=== PATIENT | female | born 1985 | race Caucasian/White ===

== ENCOUNTER 2019-05-30 15:33 | Emergency (ER) | payer MEDICAID, SELFPAY ==
[2019-05-30] VITALS (14 sets, daily range): BP systolic 109–128; BP diastolic 56–59; PULSE 64; RESP 15–22; TEMP 36.8; O2SAT 92–98; BMI 26.6
--- NOTE | 2019-05-30 15:48 | ED_ITS ---
Entered by Harpreet Deal, acting as scribe for HPI - Chest Pain General: Chief Complaint: Chest Pain Stated Complaint: CP/N/V Time Seen by Provider: 05/30/19 15:42 History of Present Illness: HPI narrative: 33 yo female presents with chest pain, nausea and vomiting. Pt states that she hasn't been able to eat or sleep. pt states that she has tightness in her chest and back. Pt states that the tightness is constant. Pt states that they don't know what this tightness is. pt states that she has had this for a few months. Pt states that she had a baby in February that . complaint: chest pain Onset (ago): month(s) (several) Timing of current episode: constant Prior episodes: Yes Onset: during rest and during exertion Pain radiation: back Severity: moderate Quality: tightness Exacerbating factors: exertion and movement Associated symptoms: Reports nausea and vomiting; Deny dyspnea or fever(s) Review of Systems Const: Denies: fever, chills, body aches or change in appetite Eyes: Denies: blurry vision or eye discomfort ENMT: Denies: throat pain or dental pain Card: Reports: chest pain Resp: Denies: shortness of breath GI: Reports: nausea and vomiting : Denies: painful urination Musc: Reports: back pain; Denies: neck pain Skin/Breast: Denies: rash Neuro: Denies: headache Psych: Denies: depression Jasbir/Lymph: Denies: easy bruising All/Imm: Denies: hives PFS ED PFSH: Medical History (Updated 05/30/19 @ 17:35 by Anjel aBca MD) Anxiety Bipolar 1 disorder Depression Gastroesophageal reflux disease Peptic ulcer disease Social History Smoking and tobacco status: current every day smoker Female Reproductive History: Date of last menstrual period: 05/30/19 Physical Exam Const: COMMON NORMALS: no apparent distress, oriented x3 and healthy appearing HENMT: COMMON NORMALS: normocephalic and head/scalp atraumatic HEAD & SCALP: normocephalic and atraumatic Eye: COMMON NORMALS: PERRL and EOMs intact bilaterally PUPIL: Yes PERRL Neck/C-Spine: COMMON NORMALS: full ROM and supple Chest: COMMONS NORMALS: inspection of chest normal and palpation of chest normal Resp: COMMON NORMALS: normal respiratory effort, no retractions, no use of accessory muscles and clear to auscultation bilaterally AUSCULTATION: clear to auscultation bilaterally Cardio: COMMON NORMALS: regular rate, regular rhythm and no murmurs RATE: regular rate RHYTHM: regular rhythm GI: COMMON NORMALS: normal to inspection, nondistended, normoactive bowel sounds, soft to palpation, non-tender and no masses PALPATION: Yes soft Extremity: COMMON NORMALS: normal to inspection and full ROM Neuro: COMMON NORMALS: oriented x3, moves all extremities and no focal motor deficits Psych: COMMON NORMALS: mental status grossly normal, thought process normal and cooperative THOUGHT PROCESS: normal thought process Skin: COMMON NORMALS: no rashes or lesions noted and no wounds GENERAL SKIN EXAM: no rashes or lesions noted Course Vital Signs: Vital signs: Vital Signs Temperature 98.3 F 05/30/19 15:38 Pulse Rate 64 05/30/19 15:38 Respiratory Rate 15 05/30/19 17:05 Blood Pressure 109/59 05/30/19 15:38 Pulse Oximetry 94 05/30/19 17:05 MDM - Chest Pain MDM Narrative: Medical decision making narrative: Patient presents here with chest pain that is atypical in nature. She has had this for months. Patient's x-ray and EKG here are normal. Patient's troponin is normal as well. She has no signs of cardiac cause or pulmonary embolism. We will get her follow-up with Dr. Maria and she is to return if worsening. She understands and agrees to the plan. Lab Data: Labs: Lab Results 05/30/19 05/30/19 05/30/19 Range/Units 14:39 16:24 16:24 WBC 10.2 H (4.0-10.0) 10^3/ uL RBC 5.10 (4.1-5.3) 10^6/u L Hgb 12.0 (11.5-15.3) g/dL Hct 38.9 (37.0-47.0) % MCV 76.3 L (81-99) fL MCH 23.5 L (28.0-34.0) pg MCHC 30.8 (30.0-36.0) g/dL RDW 15.0 (12.1-15.1) % Plt Count 387 (130-400) 10^3/c mm MPV 11.6 H (7.4-10.4) fL Neut % (Auto) 79.2 % Lymph % (Auto) 15.7 % Terry % (Auto) 3.1 % Eos % (Auto) 1.0 % Baso % (Auto) 0.8 % Neut # (Auto) 8.1 H (1.8-7.7) 10^3/u L Lymph # (Auto) 1.6 (0.8-4.8) 10^3/u L Terry # (Auto) 0.3 (0.2-0.9) 10^3/u L Eos # (Auto) 0.1 (0.0-0.8) 10^3/u L Baso # (Auto) 0.1 (0.0-0.1) 10^3/u L Nucleated RBC % (a uto) 0 % Nucleated RBCs # 0.0 /100WBC Sodium 139 (136-145) mmol/L Potassium 4.2 (3.5-5.1) mmol/L Chloride 108 H (98-107) mmol/L Carbon Dioxide 21 L (22-29) mmol/L Anion Gap 14.2 (5-19) BUN 10 (6-20) mg/dL Creatinine 0.6 (0.5-0.9) mg/dL GFR Calculation 113.8 (90-130) mL/min Glucose 124 H (65-115) mg/dL Calcium 9.2 (8.5-10.5) mg/dL Total Bilirubin 0.3 (0.15-1.2) mg/dL AST 12 (0-32) U/L ALT 17 (0-33) U/L Alkaline Phosphata se 76 (35-105) IU/L Troponin T Baselin e 6 (0-10) ng/mL Total Protein 7.2 (6.6-8.7) g/dL Albumin 4.1 (3.5-5.2) g/dL Globulin 3.1 (1.3-4.6) g/dL Lipase 38 (13-60) U/L Imaging Data^: CXR: Attestation: I personally reviewed and interpreted this imaging study as follows: My impression: no acute abnormality EKG Data^: EKG 1: Attestation: I personally reviewed and interpreted this EKG as follows: EKG interpretation date: 05/30/19 EKG interpretation time: 15:51 Interpretation: sinus mundo hr [address] or t wave abnormalities qrs 95 qtc 409 Discharge Plan Discharge Patient Disposition: Home, Self-Care Clinical Impression: Atypical chest pain Condition: Stable Discharge Orders: Discharge Order (Routine); Ordered 05/30/19 Ordered By: Anjel Baca Referrals: Abdi Maria MD [Physician] - Discharge Diet: Advance as tolerated Discharge Activity: Resume usual activity Patient Instructions: Chest Pain (ED) Coding Level of Care Code ED Spring Fitter for Chg 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 The documentation recorded by the Say odom Kialy, accurately reflects the service I personally performed and the decisions made by Phuong wilkinson Korby, MD May 30, 2019 15:33
--- NOTE | 2019-05-30 15:59 | ECG_ITS ---
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 [email or web address]
[2019-05-30 16:11] LABS: Basophils # 0.1 10^3/uL (0.0-0.1); Basophils % 0.8 %; Eosinophils # 0.1 10^3/uL (0.0-0.8); Hematocrit 38.9 % (37.0-47.0); Lymphocytes # 1.6 10^3/uL (0.8-4.8); Lymphocytes % 15.7 %; Mean Corpuscular HGB Conc 30.8 g/dL (30.0-36.0); Mean Corpuscular Hemoglobin 23.5 pg (28.0-34.0); Mean Corpuscular Volume 76.3 fL (81-99); Mean Platelet Volume 11.6 fL (7.4-10.4); Monocytes # 0.3 10^3/uL (0.2-0.9); Monocytes % 3.1 %; Neutrophils # 8.1 10^3/uL (1.8-7.7); Neutrophils % 79.2 %; Nucleated Red Blood Cells % 0 %; Platelet Count 387 10^3/cmm (130-400); White Blood Count 10.2 10^3/uL (4.0-10.0)
[2019-05-30] MEDS: sodium chloride 0.9% 1,000 ML 999 ML IV (16:46)
[2019-05-30] MEDS: HYDROmorphone 1 mg/mL INJ 1 mL IVP (16:49)
[2019-05-30] MEDS: ondansetron 2 mg/ML SDV 2 mL 4 MG IVP (16:49)
--- NOTE | 2019-05-30 16:51 | XR_ITS ---
WS: [id number] XR chest 1V portable [id number] REASON FOR EXAM: cp FINDINGS: Comparison November 18, 2017. The heart is not enlarged. The lung varela are adequately aerated. No pneumonia, pleural effusion, pulmonary edema, or pneumotho rax. The hilum and apices are normal. No osseous abnormalities. XR/XR chest 1V portable [id number] IMPRESSION: No active cardiopulmonary changes.
[2019-05-30 17:01] LABS: Alanine Aminotransferase 17 U/L (0-33); Albumin Level 4.1 g/dL (3.5-5.2); Alkaline Phosphatase 76 IU/L (35-105); Anion Gap 14.2 (5-19); Aspartate Amino Transferase 12 U/L (0-32); Blood Urea Nitrogen 10 mg/dL (6-20); Calcium 9.2 mg/dL (8.5-10.5); Carbon Dioxide 21 mmol/L (22-29); Chloride 108 mmol/L (98-107); Globulin 3.1 g/dL (1.3-4.6); Glomerular Filtration Rate 113.8 mL/min (90-130); Glucose 124 mg/dL (65-115); Lipase 38 U/L (13-60); Potassium 4.2 mmol/L (3.5-5.1); Sodium 139 mmol/L (136-145); Total Bilirubin 0.3 mg/dL (0.15-1.2); Total Protein 7.2 g/dL (6.6-8.7)
[2019-05-30 17:02] LABS: Troponin(5th) Baseline 6 ng/mL (0-10)
--- NOTE | 2019-05-31 15:02 | DCPLANNER ---
manager android had message to schedule a follow up appointment for patient with [facility]. manager android called [facility], spoke with Iona, gave clinic patients information. manager android was told that patients information would be reviewed, clinic will call field case manager and patient with appointment information.
--- NOTE | 2019-06-01 13:01 | DCPLANNER ---
Patient has a follow up appointment scheduled for Friday, June 14, 2019 at [facility], with Dr. Plascencia. Clinic will call mattress spring encaser with appointment information.
--- NOTE | 2019-06-15 10:59 | DCPLANNER ---
Appointment scheduled for 06.14.19 has been rescheduled for Wednesday, July 03, 2019 at 1:[address] Plascencia.
--- NOTE | 2019-07-16 14:54 | DCPLANNER ---
Appointment scheduled for 06.14.19 with [facility], was rescheduled.
== END 2019-05-30 18:05 | disposition home or self-care (01) ==
PROVIDERS: Emergency Provider Emergency Medicine
DX: R07.89 Other chest pain (principal); F17.200 Nicotine dependence, unspecified, uncomplicated
CPT/HCPCS: 36415; 71045; 80053; 83690; 84484; 85025; 93005; 96361; 96374; 96375; 99282; 99284; J1170; J2405; J7030

== ENCOUNTER 2019-06-02 11:38 | Emergency (ER) | payer MEDICAID, SELFPAY ==
[2019-06-02 11:38] VITALS: BP 142/116; PULSE 56; RESP 15; TEMP 36.9; O2SAT 99; BMI 27.1
--- NOTE | 2019-06-02 12:01 | ED_ITS ---
Entered by Michelle Del Cid, acting as scribe for Flores Walters MD HPI - General Adult General: Chief complaint: General Medical Stated complaint: GENERAL PAIN Time Seen by Provider: 06/02/19 12:00 Source: patient Mode of arrival: ambulatory Limitations: no limitations History of Present Illness: HPI narrative: 33 yo Female presents to ED with complaint of nausea, vomiting, and muscle pain all over. Pt states that she hasn't stopped any medications that would be causing withdrawal type symptoms. Pt states that she has been seen in [place] and at [facility]. Pt states that she had H. Pylori in her stomach several years ago and thought that was better. Pt states that she was seen by her PCP today and given a shot of compazine and toradol. Pt states that when she lost days and was delirious from pain when she had the H. pylori before. Pt requests nausea medication and Dilaudid for the pain. Pt has had a history of pancreatits. Pt states that she still has her gallbladder and appendix. complaint: Multiple complaints Onset (ago): day(s) Location: abdomen Severity scale (1-10): 10 Quality: constant Pain Consistency: constant Relieving factors: none Exacerbating factors: none Associated symptoms: Reports nausea and vomiting; Deny chest pain, dyspnea, headache(s) or rash Treatments prior to arrival: none Review of Systems General: Reports: 10 or more systems reviewed and unremarkable except in HPI and below Const: Reports: body aches; Denies: fever or chills Eyes: Denies: change in vision ENMT: Denies: throat pain Card: Denies: chest pain Resp: Denies: shortness of breath GI: Reports: abdominal pain, nausea and vomiting; Denies: change in bowel habits : Denies: difficulty urinating Musc: Denies: muscle weakness Skin/Breast: Denies: rash Neuro: Denies: headache Psych: Denies: hopelessness or suicidal ideation Endo: Denies: excessive urination Jasbir/Lymph: Denies: easy bruising or easy bleeding All/Imm: Denies: hives PFSH ED PFSH: Medical History Anxiety Bipolar 1 disorder Depression Gastroesophageal reflux disease Peptic ulcer disease Social History Smoking and tobacco status: current every day smoker Female Reproductive History: Date of last menstrual period: 05/30/19 Physical Exam Const: COMMON NORMALS: no apparent distress, average body habitus, oriented x3, no limitations, healthy appearing, alert and well nourished HENMT: COMMON NORMALS: normocephalic, external ears normal and external nose normal HEAD & SCALP: normocephalic NOSE: external nose normal EXTERNAL EAR: Yes external ears normal MOUTH: oral and palatal mucosa normal THROAT: posterior oropharynx normal Eye: COMMON NORMALS: PERRL, EOMs intact bilaterally, conjunctivae normal, no scleral icterus and normal visual varela by confrontation CONJUNCTIVA: Yes conjunctivae normal PUPIL: Yes PERRL Neck/C-Spine: COMMON NORMALS: full ROM, no lymphadenopathy, supple, no meningeal signs and no JVD CERVICAL SPINE: Yes cervical ROM normal Lymph: LYMPHATIC: no lymphadenopathy noted Chest: COMMONS NORMALS: inspection of chest normal Resp: COMMON NORMALS: normal respiratory effort, no retractions, no use of accessory muscles and clear to auscultation bilaterally AUSCULTATION: clear to auscultation bilaterally Cardio: COMMON NORMALS: no JVD, regular rate, regular rhythm, no gallops, no clicks, no murmurs and no rub RATE: regular rate RHYTHM: regular rhythm GI: COMMON NORMALS: normal to inspection, nondistended, normoactive bowel sounds, soft to palpation and non-tender AUSCULTATION: Yes normoactive bowel sounds PALPATION: Yes soft : COMMON NORMALS: Yes no CVA tenderness BLADDER/KIDNEY EXAM: Yes no CVA tenderness Back/Pelvis: COMMON NORMALS: no CVA tenderness Extremity: COMMON NORMALS: normal to inspection Neuro: COMMON NORMALS: oriented x3 SENSORIUM/ORIENTATION: Yes alert MENINGEAL SIGNS: Yes no meningeal signs SPEECH: speech normal Psych: COMMON NORMALS: mental status grossly normal, thought process normal, cooperative, affect normal, speech normal, activity/motor behavior normal, denies hallucinations, denies homicidal ideation and denies suicidal ideation SPEECH: Yes normal speech THOUGHT PROCESS: normal thought process Skin: COMMON NORMALS: no rashes or lesions noted GENERAL SKIN EXAM: no rashes or lesions noted Course Vital Signs: Vital signs: Vital Signs Temperature 98.4 F 06/02/19 11:38 Pulse Rate 56 L 06/02/19 11:38 Respiratory Rate 18 06/02/19 12:28 Blood Pressure 142/116 06/02/19 11:38 Pulse Oximetry 99 06/02/19 12:28 MDM - General Adult MDM Narrative: Medical decision making narrative: Patient told me that she feels exactly like she did years ago when she was diagnosed with H. pylori she had exactly the same symptoms pain all over nausea vomiting. Her test today showed that she is positive for H. pylori I updated her on this information she is resting comfortably in bed right now and does not appear to be in distress. Prescription is written for clarithromycin based therapy to eradicate H. pylori. She also has a follow-up appointment June 13 with a senior information security analyst from her previous ED visit, the social science professor informed me of this earlier. Lab Data: Labs: Lab Results 06/02/19 06/02/19 06/02/19 Range/Units 12:22 12:22 12:48 WBC 10.0 (4.0-10.0) 10^3/ uL RBC 4.94 (4.1-5.3) 10^6/u L Hgb 11.7 (11.5-15.3) g/dL Hct 38.1 (37.0-47.0) % MCV 77.1 L (81-99) fL MCH 23.7 L (28.0-34.0) pg MCHC 30.7 (30.0-36.0) g/dL RDW 15.1 (12.1-15.1) % Plt Count 356 (130-400) 10^3/c mm MPV 10.9 H (7.4-10.4) fL Neut % (Auto) 86.8 % Lymph % (Auto) 9.4 % Henderson % (Auto) 2.4 % Eos % (Auto) 0.6 % Baso % (Auto) 0.5 % Neut # (Auto) 8.7 H (1.8-7.7) 10^3/u L Lymph # (Auto) 0.9 (0.8-4.8) 10^3/u L Henderson # (Auto) 0.2 (0.2-0.9) 10^3/u L Eos # (Auto) 0.1 (0.0-0.8) 10^3/u L Baso # (Auto) 0.1 (0.0-0.1) 10^3/u L Nucleated RBC % (a uto) 0 % Nucleated RBCs # 0.0 /100WBC Sodium (136-145) mmol/L Potassium (3.5-5.1) mmol/L Chloride (98-107) mmol/L Carbon Dioxide (22-29) mmol/L Anion Gap (5-19) BUN (6-20) mg/dL Creatinine (0.5-0.9) mg/dL GFR Calculation (90-130) mL/min Glucose (65-115) mg/dL Calcium (8.5-10.5) mg/dL Total Bilirubin (0.15-1.2) mg/dL AST (0-32) U/L ALT (0-33) U/L Alkaline Phosphata se (35-105) IU/L Total Protein (6.6-8.7) g/dL Albumin (3.5-5.2) g/dL Globulin (1.3-4.6) g/dL Lipase (13-60) U/L Urine Color Dark yellow (Yellow) Urine Appearance Cloudy (CLEAR) Urine pH 6 (5-7) Ur Specific Gravit y 1.025 (1.005-1.030) Urine Protein Trace (Negative) Urine Glucose (UA) Norm (Normal) Urine Ketones 1+ H (Negative) Urine Blood Neg (Negative) Urine Nitrate Negative (Negative) Urine Bilirubin 1+ H (NEGATIVE) Urine Urobilinogen Norm (Negative) mg/dL Ur Leukocyte Gina ase 1+ H (Negative) Urine RBC 0-4 H (0-2) /hpf Urine WBC 5-10 H (0-5) /hpf Ur Squamous Epith Cells 25-40 H (0-5) Urine Bacteria 1+ H (NONE) Urine Mucus 2+ Urine Opiates Scre en Negative (Negative) ng/mL Ur Barbiturates Sc reen Negative (Negative) ng/mL Ur Phencyclidine S crn Negative (Negative) ng/mL Ur Amphetamines Sc reen Negative (Negative) ng/mL U Benzodiazepines Scrn Negative (Negative) ng/mL Urine Cocaine Scre en Negative (Negative) ng/mL U Marijuana (THC) Screen Positive H (Negative) ng/mL Ethyl Alcohol (0-10) mg/dL H. pylori IgG Anti body (Negative) 06/02/19 06/02/19 Range/Units 12:48 12:48 WBC (4.0-10.0) 10^3/ uL RBC (4.1-5.3) 10^6/u L Hgb (11.5-15.3) g/dL Hct (37.0-47.0) % MCV (81-99) fL MCH (28.0-34.0) pg MCHC (30.0-36.0) g/dL RDW (12.1-15.1) % Plt Count (130-400) 10^3/c mm MPV (7.4-10.4) fL Neut % (Auto) % Lymph % (Auto) % Henderson % (Auto) % Eos % (Auto) % Baso % (Auto) % Neut # (Auto) (1.8-7.7) 10^3/u L Lymph # (Auto) (0.8-4.8) 10^3/u L Henderson # (Auto) (0.2-0.9) 10^3/u L Eos # (Auto) (0.0-0.8) 10^3/u L Baso # (Auto) (0.0-0.1) 10^3/u L Nucleated RBC % (a uto) % Nucleated RBCs # /100WBC Sodium 142 (136-145) mmol/L Potassium 3.7 (3.5-5.1) mmol/L Chloride 106 (98-107) mmol/L Carbon Dioxide 22 (22-29) mmol/L Anion Gap 17.7 (5-19) BUN 15 (6-20) mg/dL Creatinine 0.7 (0.5-0.9) mg/dL GFR Calculation 95.2 (90-130) mL/min Glucose 158 H (65-115) mg/dL Calcium 9.7 (8.5-10.5) mg/dL Total Bilirubin 0.4 (0.15-1.2) mg/dL AST 14 (0-32) U/L ALT 14 (0-33) U/L Alkaline Phosphata se 85 (35-105) IU/L Total Protein 7.7 (6.6-8.7) g/dL Albumin 4.5 (3.5-5.2) g/dL Globulin 3.2 (1.3-4.6) g/dL Lipase 42 (13-60) U/L Urine Color (Yellow) Urine Appearance (CLEAR) Urine pH (5-7) Ur Specific Gravit y (1.005-1.030) Urine Protein (Negative) Urine Glucose (UA) (Normal) Urine Ketones (Negative) Urine Blood (Negative) Urine Nitrate (Negative) Urine Bilirubin (NEGATIVE) Urine Urobilinogen (Negative) mg/dL Ur Leukocyte Gina ase (Negative) Urine RBC (0-2) /hpf Urine WBC (0-5) /hpf Ur Squamous Epith Cells (0-5) Urine Bacteria (NONE) Urine Mucus Urine Opiates Scre en (Negative) ng/mL Ur Barbiturates Sc reen (Negative) ng/mL Ur Phencyclidine S crn (Negative) ng/mL Ur Amphetamines Sc reen (Negative) ng/mL U Benzodiazepines Scrn (Negative) ng/mL Urine Cocaine Scre en (Negative) ng/mL U Marijuana (THC) Screen (Negative) ng/mL Ethyl Alcohol < 10 (0-10) mg/dL H. pylori IgG Anti body Positive H (Negative) EKG Data^: EKG 1: EKG interpretation date: 06/02/19 EKG interpretation time: 12:38 Interpretation: Sinus bradycardia rate [address] changes with underlying artifact no acute ST elevation Discharge Plan Discharge Patient Disposition: Home, Self-Care Clinical Impression: H. pylori infection Condition: Stable Prescriptions: New omeprazole 20 mg capsule,delayed release(DR/EC) 20 mg PO BID 14 Days Qty: 28 RF: 0 metronidazole 500 mg tablet 500 mg PO TID 14 Days Qty: 42 RF: 0 Discharge Diet: Usual diet Discharge Activity: Resume usual activity Patient Instructions: Helicobacter Pylori (ED) Activity Restrictions/Additional Instructions: Follow-up with your primary care doctor as needed. You are always welcome to come back to the emergency department if you have any new or emergent symptoms that you think need to be evaluated. Be sure to take the entire 14-day course of the medications for the H. pylori. Coding Level of Care Code ED Analytical Statistician for Chg 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 The documentation recorded by the Maria Eugenia odom Carmen, accurately reflects the service I personally performed and the decisions made by , Flores Walters MD
[2019-06-02] MEDS: promethazine 25 mg/mL SDV 1 mL IM (12:27)
[2019-06-02 12:28] VITALS: RESP 18; O2SAT 99
[2019-06-02] MEDS: diazePAM 5 mg Tablet 10 MG PO (12:28)
[2019-06-02] MEDS: morphine 4 mg/mL SDV 1 mL IVP (12:28)
[2019-06-02 12:59] LABS: Basophils # 0.1 10^3/uL (0.0-0.1); Basophils % 0.5 %; Eosinophils # 0.1 10^3/uL (0.0-0.8); Eosinophils % 0.6 %; Hematocrit 38.1 % (37.0-47.0); Hemoglobin 11.7 g/dL (11.5-15.3); Lymphocytes # 0.9 10^3/uL (0.8-4.8); Lymphocytes % 9.4 %; Mean Corpuscular HGB Conc 30.7 g/dL (30.0-36.0); Mean Corpuscular Hemoglobin 23.7 pg (28.0-34.0); Mean Corpuscular Volume 77.1 fL (81-99); Mean Platelet Volume 10.9 fL (7.4-10.4); Monocytes # 0.2 10^3/uL (0.2-0.9); Monocytes % 2.4 %; Neutrophils # 8.7 10^3/uL (1.8-7.7); Neutrophils % 86.8 %; Nucleated Red Blood Cells % 0 %; Platelet Count 356 10^3/cmm (130-400); Red Blood Count 4.94 10^6/uL (4.1-5.3); Red Cell Distribution Width 15.1 % (12.1-15.1)
[2019-06-02 13:13] LABS: Alanine Aminotransferase 14 U/L (0-33); Albumin Level 4.5 g/dL (3.5-5.2); Alkaline Phosphatase 85 IU/L (35-105); Anion Gap 17.7 (5-19); Aspartate Amino Transferase 14 U/L (0-32); Blood Urea Nitrogen 15 mg/dL (6-20); Calcium 9.7 mg/dL (8.5-10.5); Carbon Dioxide 22 mmol/L (22-29); Chloride 106 mmol/L (98-107); Globulin 3.2 g/dL (1.3-4.6); Glomerular Filtration Rate 95.2 mL/min (90-130); Glucose 158 mg/dL (65-115); Lipase 42 U/L (13-60); Potassium 3.7 mmol/L (3.5-5.1); Sodium 142 mmol/L (136-145); Total Bilirubin 0.4 mg/dL (0.15-1.2); Total Protein 7.7 g/dL (6.6-8.7)
[2019-06-02 13:15] LABS: H. Pylori IgG Antibody Positive (Negative)
[2019-06-02 13:16] LABS: Alcohol Level < 10 mg/dL (0-10)
[2019-06-02 13:18] LABS: Amphetamines Screen Urine Negative (Negative); Barbiturates Screen Urine Negative (Negative); Benzodiazepines Screen Urine Negative (Negative); Cocaine Screen Urine Negative (Negative); Opiate Screen Urine Negative (Negative); PCP Screen Urine Negative (Negative); THC Screen Urine Positive (Negative)
[2019-06-02 13:21] LABS: Urine Appearance Cloudy (CLEAR); Urine Color Dark Yellow (Yellow)
[2019-06-02 13:22] LABS: Add Urine Microscopic? YES; Bilirubin Urine 1+ (NEGATIVE); Blood Urine Neg (Negative); Glucose Urine UA Norm (Normal); Ketones Urine 1+ (Negative); Leukocyte Esterase Urine 1+ (Negative); Nitrate Urine Negative (Negative); Protein Urine Trace (Negative); Specific Gravity, Urine 1.025 (1.005-1.030); Urobilinogen Urine Norm (Negative); pH Urine 6 (5-7)
[2019-06-02 13:23] LABS: Bacteria Urine 1+; Mucus Urine 2+; RBC Urine 0-4 /hpf (0-2); Squamous Epithelial Cell Urine 25-40 (0-5)
[2019-06-02 13:52] VITALS: RESP 18; O2SAT 99
[2019-06-02] MEDS: morphine 4 mg/mL SDV 1 mL 2 MG IVP (13:52)
[2019-06-02] MEDS: ondansetron 2 mg/ML SDV 2 mL 4 MG IVP (14:13)
[2019-06-02 14:34] VITALS: BP 141/82; PULSE 67; RESP 20; O2SAT 99
[2019-06-02 14:56] VITALS: RESP 18; O2SAT 98
[2019-06-02] MEDS: HYDROmorphone 1 mg/mL INJ 1 mL 0.4 MG SUBCUT (14:56)
--- NOTE | 2019-06-02 14:58 | PC.NURSE ---
PT ASKING TO SPEAK TO DR MAHMOOD, REQUESTING DILAUDID AND REFUSES TO LEAVE ROOM UNTIL DR MAHMOOD ORDERS DILAUDID. ATTEMPTED TO REASSURE PT WHILE EXPLAINING TO HER THAT THE DOCTOR WILL MAKE THE DECISION ABOUT PAIN MEDICATIONS. PT HAD REQUESTED DILAUDID 3 TIMES PRIOR TO THIS REQUEST. DR MAHMOOD NOTIFIED ET DISCHARGE WAS TO CONTINUE. PT BECAME ANGRY, RAISING HER VOICE STATING THEY GAVE ME DILAUDID LAST TIME! SECURITY CALLED TO ROOM TO SPEAK WITH PT. DISCHARGE INSTRUCTIONS GIVEN ET PT SIGNED HER DISCHARGE, BUT CONTINUED TO REFUSE TO LEAVE UNTIL DR MAHMOOD CAME TO ROOM TO SPEAK WITH HER. DR MAHMOOD DID COME TO ROOM ET SPOKE WITH PT. DILAUDID ORDERED FOR PT ET GIVEN. PT CALMLY LEFT ER AFTER RECEIVING INJECTION.
== END 2019-06-02 15:08 ==
LOC: ER 13:58
PROVIDERS: Emergency Provider Emergency Medicine
DX: A04.8 Other specified bacterial intestinal infections (principal)
CPT/HCPCS: 36415; 80053; 80307; 81001; 83690; 85025; 86677; 96372; 96374; 96375; 96376; 99283; J1170; J2270; J2405; J2550

== ENCOUNTER 2019-06-20 11:45 | Emergency (ER) | payer MEDICAID, SELFPAY ==
--- NOTE | 2019-06-20 11:51 | ED_ITS ---
Entered by Michelle Del Cid, acting as scribe for Misti Pennington DO HPI - Abdominal Pain General: Chief Complaint: Abdominal Pain Stated Complaint: ABD PAIN Time Seen by Provider: 06/20/19 11:48 Source: patient Mode of arrival: ambulatory Limitations: no limitations History of Present Illness: HPI narrative: 33 yo Female presents to ED with complaint of abdominal pain. Pt states that she has been dealing with this since 2013. Pt states that she has parasites and that she has been given multiple medications but they aren't working because she throws them up. Pt states that her symptoms have been going on again for 3 days. Pt states that the past 2 days she hasn't been throwing up but today she started throwing up again. Pt states that she has extreme pain. Pt states that her doctors keep telling her it is fibromyalgia. Pt states that she can't take pills because she throws them up and she can't drink water because she throws it up. Pt states that she smokes marijuana and cigarettes but she can't do that because it makes her throw up. Pt states that she also has back pain and spasms. Pt states that her symptoms are worse in the morning. Pt states that she has been told it is anxiety as well. Pt states that she can't deal with the pain. MD elicited complaint: abdominal pain Onset (ago): day(s) (3) Pain Consistency: constant Location: Diffuse Pain scale (0-10): 10 Quality: aching Radiation: none Migration to: no migration Exacerbating factors: eating and vomiting Relieving factors: nothing Associated Symptoms: Reports nausea and vomiting; Denies chills, constipation, diarrhea, fever(s) and hematochezia Related Data: Date of Last Menstrual Period: 05/30/19 Review of Systems General: Reports: 10 or more systems reviewed and unremarkable except in HPI and below Const: Denies: fever, chills or fatigue ENMT: Denies: throat pain Card: Denies: chest pain or swelling of feet/ankles Resp: Denies: shortness of breath or productive cough GI: Reports: abdominal pain, nausea and vomiting; Denies: diarrhea, constipation or blood in stool : Denies: difficulty urinating Musc: Reports: back pain; Denies: extremity swelling Skin/Breast: Denies: rash Neuro: Denies: headache, numbness in extremities or weakness in extremities PFSH ED PFSH: Social History Smoking and tobacco status: current every day smoker Female Reproductive History: Date of last menstrual period: 05/30/19 Physical Exam Const: COMMON NORMALS: no apparent distress and oriented x3 GENERAL APPEARANCE: cooperative; not in distress HENMT: COMMON NORMALS: normocephalic HEAD & SCALP: normal to inspection and normocephalic TYMPANIC MEMBRANE: TM normal on the right and TM abnormal TM laterality: left Details: fluid behind TM MOUTH: oral and palatal mucosa normal and lip normal THROAT: posterior oropharynx normal and tonsils abnormal (mildly enlarged bilaterally); tonsils not normal Neck/C-Spine: COMMON NORMALS: full ROM, no lymphadenopathy, supple and no meningeal signs GENERAL: Yes normal visual inspection and Yes trachea midline Chest: COMMONS NORMALS: inspection of chest normal Resp: COMMON NORMALS: normal respiratory effort and clear to auscultation bilaterally EFFORT & INSPECTION: Yes able to speak in complete sentences and No respiratory distress AUSCULTATION: clear to auscultation bilaterally, no rales, no rhonchi and wheezes (slight) Cardio: COMMON NORMALS: regular rate, regular rhythm, S1 normal heart sound, S2 normal heart sound and no murmurs RATE: regular rate RHYTHM: regular rhythm HEART SOUNDS: S1 normal and S2 normal PERIPHERAL PULSES: radial pulses present and dorsalis pedis pulses present GI: COMMON NORMALS: soft to palpation and non-tender; negative for normal to inspection, nondistended, normoactive bowel sounds INSPECTION: Yes normal to inspection AUSCULTATION: No normoactive bowel sounds and Yes hypoactive bowel sounds PALPATION: Yes soft, Yes tender (diffusely), No guarding and No rigid RECTAL EXAM: deferred : COMMON NORMALS: Yes no CVA tenderness BLADDER/KIDNEY EXAM: Yes no CVA tenderness Back/Pelvis: COMMON NORMALS: no CVA tenderness Extremity: COMMON NORMALS: normal to inspection, full ROM, normal capillary refill, no calf tenderness and no pedal edema Neuro: COMMON NORMALS: oriented x3, CN's II-XII intact bilaterally, moves all extremities and no focal motor deficits MENINGEAL SIGNS: Yes no meningeal signs Skin: COMMON NORMALS: no rashes or lesions noted GENERAL SKIN EXAM: no aminata hes or lesions noted Course Vital Signs: Vital signs: Vital Signs Temperature 97.9 F 06/20/19 11:53 Pulse Rate 72 06/20/19 11:53 Respiratory Rate 20 H 06/20/19 11:53 Blood Pressure 130/74 06/20/19 11:53 Pulse Oximetry 98 06/20/19 12:00 MDM - Abdominal Pain MDM Narrative: Medical decision making narrative: pt is starting to feel better, she is tolerating pos, she has a h/o H pylori, she is not dehydrated according to her labs, I will prescribe phenergan pr since she cant hold down pos, her problem is chronic and she has seen several specialists, she will need to f/u with her Dr for f/u giorgi, she may return if worse, Lab Data: Attestation: I reviewed the patient's lab results. Labs: Lab Results 06/20/19 06/20/19 06/20/19 Range/Units 12:15 12:15 13:45 WBC 10.2 H (4.0-10.0) 10^3/ uL RBC 5.16 (4.1-5.3) 10^6/u L Hgb 12.2 (11.5-15.3) g/dL Hct 40.5 (37.0-47.0) % MCV 78.5 L (81-99) fL MCH 23.6 L (28.0-34.0) pg MCHC 30.1 (30.0-36.0) g/dL RDW 15.9 H (12.1-15.1) % Plt Count 338 (130-400) 10^3/c mm MPV 11.0 H (7.4-10.4) fL Neut % (Auto) 79.8 % Lymph % (Auto) 12.9 % [place] % (Auto) 4.8 % Eos % (Auto) 1.6 % Baso % (Auto) 0.7 % Neut # (Auto) 8.1 H (1.8-7.7) 10^3/u L Lymph # (Auto) 1.3 (0.8-4.8) 10^3/u L [place] # (Auto) 0.5 (0.2-0.9) 10^3/u L Eos # (Auto) 0.2 (0.0-0.8) 10^3/u L Baso # (Auto) 0.1 (0.0-0.1) 10^3/u L Nucleated RBC % (a uto) 0 % Nucleated RBCs # 0.0 /100WBC Sodium 141 (136-145) mmol/L Potassium 3.8 (3.5-5.1) mmol/L Chloride 105 (98-107) mmol/L Carbon Dioxide 23 (22-29) mmol/L Anion Gap 16.8 (5-19) BUN 12 (6-20) mg/dL Creatinine 0.7 (0.5-0.9) mg/dL GFR Calculation 95.2 (90-130) mL/min Glucose 115 (65-115) mg/dL Calculated Osmolal ity 289 (285-295) mOsm/k g Calcium 9.9 (8.5-10.5) mg/dL Total Bilirubin 0.5 (0.15-1.2) mg/dL AST 15 (0-32) U/L ALT 15 (0-33) U/L Alkaline Phosphata se 85 (35-105) IU/L Total Protein 7.5 (6.6-8.7) g/dL Albumin 4.4 (3.5-5.2) g/dL Globulin 3.1 (1.3-4.6) g/dL Lipase 24 (13-60) U/L HCG, Qual Negative (Negative) Discharge Plan Discharge Patient Disposition: Home, Self-Care Clinical Impression: Vomiting Condition: Stable Prescriptions: New promethazine 25 mg suppository 25 mg NV Q4H PRN (Reason: nausea and vomiting) Qty: 12 RF: 0 No Action tizanidine 4 mg tablet 4 mg PO TID PRN (Reason: Muscle Pain) RF: 0 metronidazole 500 mg tablet 500 mg PO BID RF: 0 ondansetron 8 mg tablet,disintegrating 8 mg PO Q6H PRN (Reason: Nausea) RF: 0 lorazepam 0.5 mg tablet 0.5 mg PO PRN PRN (Reason: Anxiety) RF: 0 omeprazole 20 mg capsule,delayed release(DR/EC) 20 mg PO BID RF: 0 Discharge Orders: Discharge Order (Routine); Ordered 06/20/19 Ordered By: Misti Pennington Discharge Diet: Advance as tolerated Discharge Activity: Resume usual activity Patient Instructions: Acute Nausea and Vomiting (ED) Activity Restrictions/Additional Instructions: f/u with pcp /specialist giorgi, return if anything worse, drink plenty of fluids Coding Level of Care Code 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
[2019-06-20 11:53] VITALS: BP 130/74; PULSE 72; RESP 20; TEMP 36.6; O2SAT 98; BMI 26.3
[2019-06-20 12:00] VITALS: O2SAT 98
[2019-06-20 12:24] LABS: Basophils # 0.1 10^3/uL (0.0-0.1); Basophils % 0.7 %; Eosinophils # 0.2 10^3/uL (0.0-0.8); Eosinophils % 1.6 %; Hematocrit 40.5 % (37.0-47.0); Hemoglobin 12.2 g/dL (11.5-15.3); Lymphocytes # 1.3 10^3/uL (0.8-4.8); Lymphocytes % 12.9 %; Mean Corpuscular HGB Conc 30.1 g/dL (30.0-36.0); Mean Corpuscular Hemoglobin 23.6 pg (28.0-34.0); Mean Corpuscular Volume 78.5 fL (81-99); Monocytes # 0.5 10^3/uL (0.2-0.9); Monocytes % 4.8 %; Neutrophils # 8.1 10^3/uL (1.8-7.7); Neutrophils % 79.8 %; Nucleated Red Blood Cells % 0 %; Platelet Count 338 10^3/cmm (130-400); Red Blood Count 5.16 10^6/uL (4.1-5.3); Red Cell Distribution Width 15.9 % (12.1-15.1); White Blood Count 10.2 10^3/uL (4.0-10.0)
[2019-06-20] MEDS: ondansetron 2 mg/ML SDV 2 mL 4 MG IVP ×2 (12:24→14:49)
[2019-06-20] MEDS: sodium chloride 0.9% 1,000 ML 999 ML IV (12:25)
[2019-06-20] MEDS: famotidine 20 mg/2 mL INJ 40 MG IVP (12:25)
[2019-06-20] MEDS: morphine 4 mg/mL SDV 1 mL IVP ×2 (12:25→13:39)
[2019-06-20 12:40] LABS: Alanine Aminotransferase 15 U/L (0-33); Albumin Level 4.4 g/dL (3.5-5.2); Alkaline Phosphatase 85 IU/L (35-105); Anion Gap 16.8 (5-19); Aspartate Amino Transferase 15 U/L (0-32); Blood Urea Nitrogen 12 mg/dL (6-20); Calcium 9.9 mg/dL (8.5-10.5); Carbon Dioxide 23 mmol/L (22-29); Chloride 105 mmol/L (98-107); Globulin 3.1 g/dL (1.3-4.6); Glomerular Filtration Rate 95.2 mL/min (90-130); Glucose 115 mg/dL (65-115); Lipase 24 U/L (13-60); Osmolality Calculated 289 mOsm/kg (285-295); Potassium 3.8 mmol/L (3.5-5.1); Sodium 141 mmol/L (136-145); Total Bilirubin 0.5 mg/dL (0.15-1.2); Total Protein 7.5 g/dL (6.6-8.7)
[2019-06-20 13:54] LABS: HCG Qualitative Urine. Negative (Negative)
[2019-06-20 14:53] VITALS: BP 104/65; PULSE 78; RESP 16; O2SAT 98
== END 2019-06-20 14:54 | disposition home or self-care (01) ==
PROVIDERS: Emergency Provider Emergency Medicine
DX: R11.10 Vomiting, unspecified (principal); F17.200 Nicotine dependence, unspecified, uncomplicated
CPT/HCPCS: 12345; 36415; 80053; 81025; 83690; 85025; 96361; 96374; 96375; 96376; 99282; 99283; J2270; J2405; J3490; J7030

== ENCOUNTER 2019-07-03 11:02 | Emergency (ER) | payer MEDICAID, SELFPAY ==
[2019-07-03 11:03] VITALS: BP 133/76; PULSE 53; RESP 17; TEMP 36.5; O2SAT 99; BMI 25.8
--- NOTE | 2019-07-03 11:05 | W.ED.ABDPA2 ---
HPI - Abdominal Pain General: Chief Complaint: Abdominal Pain Stated Complaint: ABD PAIN Time Seen by Provider: 07/03/19 11:05 Source: patient Mode of arrival: ambulatory Limitations: no limitations History of Present Illness: HPI narrative: Patient presents with abdominal pain. Patient reports chronic history of abdominal pain and is supposed to be started on Lyrica soon. Patient has been diagnosed with fibromyalgia which is the cause for her abdominal pain. Patient appears well. Patient appears in moderate pain. Patient reportedly receiving something for pain and nausea in route to the ER. Review of medical history and chart she has been here 3 times in the last 3 months for the same complaint. Patient states she is supposed to be placed on Lyrica but is awaiting insurance approval. Related Data: Date of Last Menstrual Period: 05/30/19 Review of Systems General: Reports: 10 or more systems reviewed and unremarkable except in HPI and below GI: Reports: abdominal pain [facility] ED PFSH: Social History Smoking and tobacco status: current every day smoker Female Reproductive History: Date of last menstrual period: 05/30/19 Physical Exam Const: COMMON NORMALS: no apparent distress and oriented x3 GENERAL APPEARANCE: cooperative HENMT: COMMON NORMALS: normocephalic, external ears normal, EAC's normal, TM's normal bilaterally and external nose normal HEAD & SCALP: normal to inspection and normocephalic FACE & SINUS: normal facial exam NOSE: external nose normal GENERAL EAR: hearing not grossly impaired EXTERNAL EAR: Yes external ears normal EXTERNAL AUDITORY CANAL: EAC's normal TYMPANIC MEMBRANE: TM's normal bilaterally MOUTH: oral and palatal mucosa normal THROAT: posterior oropharynx normal Eye: COMMON NORMALS: PERRL and EOMs intact bilaterally PUPIL: Yes PERRL Neck/C-Spine: COMMON NORMALS: full ROM and no lymphadenopathy Lymph: LYMPHATIC: no lymphedema noted Chest: COMMONS NORMALS: inspection of chest normal and palpation of chest normal Resp: COMMON NORMALS: normal respiratory effort and clear to auscultation bilaterally AUSCULTATION: clear to auscultation bilaterally Cardio: COMMON NORMALS: regular rate and regular rhythm RATE: regular rate RHYTHM: regular rhythm GI: PALPATION: Yes tender (diffuse tenderness) : COMMON NORMALS: Yes no CVA tenderness BLADDER/KIDNEY EXAM: Yes no CVA tenderness Back/Pelvis: COMMON NORMALS: no CVA tenderness and thoracic and lumbar spine normal to inspection Extremity: COMMON NORMALS: normal to inspection GENERAL: No edema Neuro: COMMON NORMALS: oriented x3, moves all extremities and no focal motor deficits Psych: COMMON NORMALS: mental status grossly normal and cooperative Skin: COMMON NORMALS: no rashes or lesions noted GENERAL SKIN EXAM: no rashes or lesions noted Course ED course: 1300, patient resting quietly, states improvement in abd pain, but c/o her back, neck and shoulders, and is requesting further medication. Patient appears well. Vital Signs: Vital signs: Vital Signs Temperature 97.7 F 07/03/19 11:03 Pulse Rate 53 L 07/03/19 11:03 Respiratory Rate 17 07/03/19 11:03 Blood Pressure 133/76 07/03/19 11:03 Pulse Oximetry 98 07/03/19 11:48 MDM - Abdominal Pain MDM Narrative: Medical decision making narrative: Patient comes in today for complaints of vomiting and general pain. Patient stated at first that she was having abdominal pain for nausea and vomiting and that she had a history of ulcers. Exam noted above abdominal tenderness and generalized muscle tenderness of the neck and back. Respirations were even lungs were clear. Vital signs were normal. Differential diagnosis includes peptic ulcer disease, perforation of ulcer, pancreatitis, gastroenteritis, gastritis, exacerbation of chronic pain/fibromyalgia. Laboratory values noted a white count of 14,000, blood glucose of 168, sodium of 143, potassium 3.9, creatinine of 0.6. Patient had improvement of nausea and vomiting after dose of the Haldol 5 mg, 1 mg of Ativan, and 25 mg of Benadryl. Patient continued complaint of pain in her neck and shoulders after control of her vomiting and abdominal discomfort. Patient states that was from her fibromyalgia that started her nausea and vomiting. Review of the record patient had 3 previous visits in the last 30 days for similar complaints. CT scan was performed to rule out any significant abnormalities or illness. CT showed no perforation and no signs of inflammation or infection. CT was stable and otherwise normal. Reviewed exam with patient patient was requesting medication to help with her fibromyalgia pain, patient was given 100 mg of tramadol p.o. and written a prescription for 10 tablets. Patient was recommended to follow-up with primary care for further treatment. Lab Data: Labs: Lab Results 07/03/19 07/03/1920 Range/Units 12:04 12:04 12:04 WBC 14.5 H (4.0-10.0) 10^3/ uL RBC 5.11 (4.1-5.3) 10^6/u L Hgb 11.8 (11.5-15.3) g/dL Hct 40.1 (37.0-47.0) % MCV 78.5 L (81-99) fL MCH 23.1 L (28.0-34.0) pg MCHC 29.4 L (30.0-36.0) g/dL RDW 16.4 H (12.1-15.1) % Plt Count 269 (130-400) 10^3/c mm MPV 11.0 H (7.4-10.4) fL Neut % (Auto) 88.3 % Lymph % (Auto) 7.0 % [place] % (Auto) 3.6 % Eos % (Auto) 0.3 % Baso % (Auto) 0.3 % Neut # (Auto) 12.8 H (1.8-7.7) 10^3/u L Lymph # (Auto) 1.0 (0.8-4.8) 10^3/u L [place] # (Auto) 0.5 (0.2-0.9) 10^3/u L Eos # (Auto) 0.0 (0.0-0.8) 10^3/u L Baso # (Auto) 0.1 (0.0-0.1) 10^3/u L Nucleated RBC % (a uto) 0 % Nucleated RBCs # 0.0 /100WBC Sodium 143 (136-145) mmol/L Potassium 3.9 (3.5-5.1) mmol/L Chloride 110 H (98-107) mmol/L Carbon Dioxide 20 L (22-29) mmol/L Anion Gap 16.9 (5-19) BUN 15 (6-20) mg/dL Creatinine 0.6 (0.5-0.9) mg/dL GFR Calculation 113.8 (90-130) mL/min Glucose 168 H (65-115) mg/dL Calculated Osmolal ity 296 H (285-295) mOsm/k g Calcium 9.3 (8.5-10.5) mg/dL Total Bilirubin 0.3 (0.15-1.2) mg/dL AST 16 (0-32) U/L ALT 17 (0-33) U/L Alkaline Phosphata se 88 (35-105) IU/L Total Protein 7.7 (6.6-8.7) g/dL Albumin 4.5 (3.5-5.2) g/dL Globulin 3.2 (1.3-4.6) g/dL Lipase 23 (13-60) U/L HCG, Qual Negative (Negative) Discharge Plan Discharge Patient Disposition: Home, Self-Care Clinical Impression: Fibromyalgia, Cyclic vomiting syndrome Condition: Stable Prescriptions: New tramadol 50 mg tablet 50 mg PO Q8H PRN (Reason: pain) Qty: 7 RF: 0 No Action tizanidine 4 mg tablet 4 mg PO TID PRN (Reason: Muscle Pain) RF: 0 metronidazole 500 mg tablet 500 mg PO BID RF: 0 ondansetron 8 mg tablet,disintegrating 8 mg PO Q6H PRN (Reason: Nausea) RF: 0 lorazepam 0.5 mg tablet 0.5 mg PO PRN PRN (Reason: Anxiety) RF: 0 omeprazole 20 mg capsule,delayed release(DR/EC) 20 mg PO BID RF: 0 promethazine 25 mg suppository 25 mg [place] Q4H PRN (Reason: nausea and vomiting) Qty: 12 RF: 0 Discharge Orders: Discharge Order (Routine); Ordered 07/03/19 Ordered By: Bradley Haywood Discharge Diet: Advance as tolerated Discharge Activity: Increase activity as tolerated Patient Instructions: Abdominal Pain (ED) Activity Restrictions/Additional Instructions: Drink plenty of fluids Activity as tolerated Follow-up with primary care Return to ER for fever, blood in vomit or stool Coding Level of Care Code ED 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
[2019-07-03] MEDS: LORazepam 2 mg/mL INJ 1 mL 1 MG IVP (11:41)
[2019-07-03] MEDS: sodium chloride 0.9% 500 ML 999 ML IV (11:41)
[2019-07-03] MEDS: haloperidol inj 5 mg/mL INJ 1 mL IVP (11:42)
[2019-07-03] MEDS: diphenhydrAMINE 50 mg/mL SDV 1mL 25 MG IVP (11:42)
[2019-07-03 11:48] VITALS: O2SAT 98
[2019-07-03 12:09] LABS: Basophils # 0.1 10^3/uL (0.0-0.1); Basophils % 0.3 %; Eosinophils % 0.3 %; Hematocrit 40.1 % (37.0-47.0); Hemoglobin 11.8 g/dL (11.5-15.3); Mean Corpuscular HGB Conc 29.4 g/dL (30.0-36.0); Mean Corpuscular Hemoglobin 23.1 pg (28.0-34.0); Mean Corpuscular Volume 78.5 fL (81-99); Monocytes # 0.5 10^3/uL (0.2-0.9); Monocytes % 3.6 %; Neutrophils # 12.8 10^3/uL (1.8-7.7); Neutrophils % 88.3 %; Nucleated Red Blood Cells % 0 %; Platelet Count 269 10^3/cmm (130-400); Red Blood Count 5.11 10^6/uL (4.1-5.3); Red Cell Distribution Width 16.4 % (12.1-15.1); White Blood Count 14.5 10^3/uL (4.0-10.0)
[2019-07-03 12:26] LABS: Alanine Aminotransferase 17 U/L (0-33); Albumin Level 4.5 g/dL (3.5-5.2); Alkaline Phosphatase 88 IU/L (35-105); Anion Gap 16.9 (5-19); Aspartate Amino Transferase 16 U/L (0-32); Blood Urea Nitrogen 15 mg/dL (6-20); Calcium 9.3 mg/dL (8.5-10.5); Carbon Dioxide 20 mmol/L (22-29); Chloride 110 mmol/L (98-107); Globulin 3.2 g/dL (1.3-4.6); Glomerular Filtration Rate 113.8 mL/min (90-130); Glucose 168 mg/dL (65-115); Osmolality Calculated 296 mOsm/kg (285-295); Potassium 3.9 mmol/L (3.5-5.1); Sodium 143 mmol/L (136-145); Total Bilirubin 0.3 mg/dL (0.15-1.2); Total Protein 7.7 g/dL (6.6-8.7)
--- NOTE | 2019-07-03 13:00 | CTR_ITS ---
PROCEDURE INFORMATION: Exam: CT Abdomen And Pelvis With Contrast Exam date and time: 07/03/2019 1:03 PM Age: 33 years old Clinical indication: Abdominal pain; nausea/vomiting TECHNIQUE: Imaging protocol: Computed tomography of the abdomen and pelvis with intravenous contrast. Total DLP: 650.73 mGy-cm Radiation optimization: All CT scans at this facility use at least one of these dose optimization techniques: automated exposure control; mA and/or kV adjustment per patient size (includes targeted exams where dose is matched to clinical indication); or iterative reconstruction. Contrast material: OMNI 300; Contrast volume: 95 ml; Contrast route: 20G; COMPARISON: CT Chest/Abdomen/Pelvis w IV* 10/24/2017 12:26 PM FINDINGS: Liver: The liver is not enlarged. Nonspecific low-attenuation lesion in segment 7 measuring up to 1.3 cm in size. Additional nonspecific low-attenuation lesion in segment 2 measuring up to 1.1 cm in size. These were present before and are not significantly changed. There is an ill-defined focus of diminished subcapsular attenuation in segment 4B adjacent to the fissure for the falciform ligament which can be due to focal fatty change or an area of anomalous perfusion. Gallbladder and bile ducts: No calcified gallstones, gallbladder wall thickening, or pericholecystic inflammation. No biliary ductal dilation. Pancreas: No pancreatic mass. No peripancreatic inflammation. No pancreatic ductal dilation. Spleen: The spleen is homogeneous and is not enlarged. Adrenals: No adrenal mass. Kidneys and ureters: No hydronephrosis. No nephrolithiasis. Small , likely benign low-attenuation lesions measuring up to approximately 4-5 mm in diameter. Stomach and bowel: No bowel obstruction, colitis or diverticulitis. Appendix: The appendix has a normal caliber with no wall thickening. No periappendiceal stranding. Intraperitoneal space: No ascites or pneumoperitoneum. Vasculature: The abdominal aorta and iliofemoral arteries are normal. The mesenteric arteries are normal. The mesenteric, portal, and hepatic veins are normal. Lymph nodes: No pathologically enlarged lymph nodes. Bladder: No urinary bladder calculus or wall thickening. Reproductive: Unremarkable as visualized. Bones/joints: No acute osseous abnormality. Soft tissues: Unremarkable. CT/CT abdomen pelvis w con* [id number] IMPRESSION: 1. No bowel obstruction, colitis or diverticulitis. 2. Normal appendix. 3. Stable low-attenuation hepatic lesions, potentially cysts or hemangiomas. Radiation Dose CTDIVOL = (mGy): DLP = 650.73 (mGy-cm)
[2019-07-03 13:20] LABS: Lipase 23 U/L (13-60)
[2019-07-03 13:21] LABS: HCG, Serum Qual Negative (Negative)
[2019-07-03] MEDS: pantoprazole 40 mg SDV IVP (13:29)
[2019-07-03] MEDS: iohexol 300 mg/mL 100 mL Btl IV (13:46)
[2019-07-03] MEDS: TRAMadol 50 mg Tablet 100 MG PO (14:24)
[2019-07-03 14:34] VITALS: BP 132/91; PULSE 74; RESP 16; O2SAT 97
== END 2019-07-03 14:35 | disposition home or self-care (01) ==
PROVIDERS: Emergency Provider Nurse Practitioner Family
DX: R11.15 Cyclical vomiting syndrome unrelated to migraine (principal); M79.7 Fibromyalgia; F41.9 Anxiety disorder, unspecified; F31.9 Bipolar disorder, unspecified; K21.9 Gastro-esophageal reflux disease without esophagitis; K27.9 Peptic ulcer, site unspecified, unspecified as acute or chronic, without hemorrhage or perforation; F17.200 Nicotine dependence, unspecified, uncomplicated; F32.9 Major depressive disorder, single episode, unspecified
CPT/HCPCS: 12345; 36415; 74177; 80053; 83690; 84703; 85025; 96360; 96374; 96375; 99283; 99284; C9113; J1200; J1630; J2060; J7040; Q9967

== ENCOUNTER 2019-07-03 14:57 | Emergency (ER) | payer MEDICAID, SELFPAY ==
[2019-07-03 15:00] VITALS: PULSE 67; RESP 17; TEMP 37; O2SAT 99; BMI 25.0
--- NOTE | 2019-07-03 15:01 | ED_ITS ---
HPI - Abdominal Pain General: Chief Complaint: Abdominal Pain Stated Complaint: pain all over Time Seen by Provider: 07/03/19 15:00 History of Present Illness: HPI narrative: 33-year-old female patient checked back into the ER immediately after being seen. She was seen for what she describes as severe fibromyalgia causing abdominal pain making her nauseous and vomit she is not been using in any antiemetics she is on omeprazole she has Lortab at this try and promethazine at home and she was discharged from the earlier visit by our PA with tramadol. She checked immediately back in the emergency room and is demanding narcotics and Ativan for her symptoms. MD elicited complaint: abdominal pain Pertinent past history: other (Fibromyalgia) Onset (ago): day(s) Pain Consistency: intermittent Location: Epigastric Severity: severe Quality: cramping Radiation: none Migration to: no migration Exacerbating factors: eating and movement Relieving factors: nothing Associated Symptoms: Reports anorexia, belching, bloating, nausea and vomiting; Denies chills, coffee ground emesis, dysuria, fever(s) and hematemesis Related Data: Date of Last Menstrual Period: 05/30/19 Review of Systems Const: Denies: fever, chills, body aches, change in appetite, fatigue or malaise ENMT: Denies: throat pain, ear pain, nasal discharge or nasal congestion Card: Denies: chest pain, edema, shortness of breath on exertion or shortness of breath when lying down Resp: Denies: shortness of breath, productive cough or non-productive cough GI: Reports: abdominal pain, nausea, vomiting, bloating and belching; Denies: vomiting blood or coffee grounds in vomit : Denies: flank pain, difficulty urinating, painful urination, urinary frequency or urinary urgency Skin/Breast: Denies: rash or itching PFSH ED PFSH: Social History Smoking and tobacco status: current every day smoker Female Reproductive History: Date of last menstrual period: 05/30/19 Physical Exam Const: COMMON NORMALS: no apparent distress GENERAL APPEARANCE: cooperative and comfortable ORIENTATION/CONSCIOUSNESS: Yes awake, Yes oriented to person, Yes oriented to place and Yes oriented to time HENMT: COMMON NORMALS: normocephalic, head/scalp atraumatic, hearing grossly normal bilaterally, external ears normal, EAC's normal, TM's normal bilaterally, nasal mucous membranes and turbinates normal, moist oral mucous membranes and oropharynx normal HEAD & SCALP: normocephalic and atraumatic NOSE: nasal mucous membranes and turbinates normal EXTERNAL EAR: Yes external ears normal EXTERNAL AUDITORY CANAL: EAC's normal TYMPANIC MEMBRANE: TM's normal bilaterally Eye: COMMON NORMALS: PERRL, EOMs intact bilaterally, conjunctivae normal and no scleral icterus CONJUNCTIVA: Yes conjunctivae normal PUPIL: Yes PERRL Neck/C-Spine: COMMON NORMALS: full ROM, no lymphadenopathy, supple and no JVD Lymph: LYMPHATIC: no lymphadenopathy noted and no lymphedema noted Resp: COMMON NORMALS: normal respiratory effort, no retractions, no use of accessory muscles and clear to auscultation bilaterally AUSCULTATION: clear to auscultation bilaterally Cardio: COMMON NORMALS: no JVD, regular rate, regular rhythm and no murmurs RATE: regular rate RHYTHM: regular rhythm GI: COMMON NORMALS: soft to palpation and no hepatosplenomegaly AUSCULTATION: Yes normoactive bowel sounds PALPATION: Yes soft, No tender, No guarding and Yes no hepatosplenomegaly Extremity: COMMON NORMALS: normal to inspection, normal capillary refill, no clubbing, cyanosis or edema, no calf tenderness and no pedal edema Neuro: SENSORIUM/ORIENTATION: Yes oriented to person, Yes oriented to place and Yes oriented to time Skin: COMMON NORMALS: no rashes or lesions noted GENERAL SKIN EXAM: no rashes or lesions noted Course Vital Signs: Vital signs: Vital Signs Temperature 98.6 F 07/03/19 15:00 Pulse Rate 80 07/03/19 15:53 Respiratory Rate 18 07/03/19 15:53 Blood Pressure 145/80 07/03/19 15:53 Pulse Oximetry 98 07/03/19 15:53 MDM - Abdominal Pain MDM Narrative: Medical decision making narrative: Patient is demanding narcotics or Ativan for her abdominal pain and fibromyalgia. Discussed with her that we do not treat chronic long-term pain or fibromyalgia with narcotic offer her other options but she is not interested in this. Did give her Haldol for nausea. Very shortly after receiving this she states she feels much better and wishes to go home immediately. We will go ahead and discharge her home she should continue to take the medication she is previously been prescribed including those that were given to her earlier by the PA when she was seen for long-term she should follow-up with her primary care provider and look at fide etting into a pain clinic for long-term management. She does tell me she they have her scheduled to take Lyrica but she has not started yet because of some logistical issues with her insurance and getting medication paid for strongly encourage her to follow-up with Lyrica is a good option pain clinic would be another good option she prefers to try the Lyrica and put off going to the pain clinic for now. Lab Data: Labs: Lab Results 07/03/19 Range/Units 15:40 Urine Color Yellow (Yellow) Urine Appearance Clear (CLEAR) Urine pH 6.5 (5-7) Ur Specific Gravit y 1.010 (1.005-1.030) Urine Protein 1+ H (Negative) Urine Glucose (UA) Norm (Normal) Urine Ketones 2+ H (Negative) Urine Blood Neg (Negative) Urine Nitrate Negative (Negative) Urine Bilirubin Neg (NEGATIVE) Urine Urobilinogen Norm (Negative) mg/dL Ur Leukocyte Gina ase Negative (Negative) Urine RBC None (0-2) /hpf Urine WBC None (0-5) /hpf Ur Squamous Epith Cells 0-4 H (0-5) Urine Bacteria Trace (NONE) Urine Mucus Trace Discharge Plan Discharge Patient Disposition: Home, Self-Care Clinical Impression: Fibromyalgia, Cyclic vomiting syndrome Condition: Stable Prescriptions: No Action tizanidine 4 mg tablet 4 mg PO TID PRN (Reason: Muscle Pain) RF: 0 metronidazole 500 mg tablet 500 mg PO BID RF: 0 ondansetron 8 mg tablet,disintegrating 8 mg PO Q6H PRN (Reason: Nausea) RF: 0 lorazepam 0.5 mg tablet 0.5 mg PO PRN PRN (Reason: Anxiety) RF: 0 omeprazole 20 mg capsule,delayed release(DR/EC) 20 mg PO BID RF: 0 promethazine 25 mg suppository 25 mg VA Q4H PRN (Reason: nausea and vomiting) Qty: 12 RF: 0 tramadol 50 mg tablet 50 mg PO Q8H PRN (Reason: pain) Qty: 7 RF: 0 Discharge Orders: Discharge Order (Routine); Ordered 07/03/19 Ordered By: Guille Morin Patient Instructions: Fibromyalgia (ED), Vomiting - Adult Activity Restrictions/Additional Instructions: Follow-up with your primary care doctor as previously scheduled. Discharge Date/Time: 07/03/19 15:53 Coding Level of Care Code ED Granite Polisher for Anthony Kaiser
[2019-07-03 15:08] VITALS: O2SAT 98
[2019-07-03] MEDS: sodium chloride 0.9% 1,000 ML 999 ML IV ×2 (15:35→15:36)
[2019-07-03] MEDS: haloperidol inj 5 mg/mL INJ 1 mL IVP (15:36)
[2019-07-03 15:53] VITALS: BP 145/80; PULSE 80; RESP 18; O2SAT 98
[2019-07-03 16:10] LABS: Add Urine Microscopic? YES; Bilirubin Urine Neg (NEGATIVE); Blood Urine Neg (Negative); Glucose Urine UA Norm (Normal); Ketones Urine 2+ (Negative); Leukocyte Esterase Urine Negative (Negative); Nitrate Urine Negative (Negative); Protein Urine 1+ (Negative); Urine Appearance Clear (CLEAR); Urine Color Yellow (Yellow); Urobilinogen Urine Norm (Negative); pH Urine 6.5 (5-7)
[2019-07-03 16:28] LABS: Add Urine Culture? No; Bacteria Urine TRACE; Mucus Urine TRACE; Squamous Epithelial Cell Urine 0-4 (0-5)
== END 2019-07-03 15:53 | disposition home or self-care (01) ==
PROVIDERS: Emergency Provider Family Medicine
DX: M79.7 Fibromyalgia (principal); R11.15 Cyclical vomiting syndrome unrelated to migraine; F17.200 Nicotine dependence, unspecified, uncomplicated
CPT/HCPCS: 12345; 81001; 96360; 96361; 96374; 96375; 99283; A9270; J1630; J7030

== ENCOUNTER 2019-09-13 07:51 | Emergency (ER) | payer MEDICAID, SELFPAY ==
[2019-09-13] VITALS (7 sets, daily range): BP systolic 121–156; BP diastolic 68–87; PULSE 54–78; RESP 16–18; TEMP 36.6; O2SAT 95–100; BMI 23.5
[2019-09-13] MEDS: sodium chloride 0.9% 1,000 ML 999 ML IV ×2 (08:06→10:57)
[2019-09-13] MEDS: ondansetron 2 mg/ML SDV 2 mL 4 MG IVP (08:06)
--- NOTE | 2019-09-13 08:06 | ED_ITS ---
HPI - Abdominal Pain General: Chief Complaint: Abdominal Pain Stated Complaint: ABD PAIN Time Seen by Provider: 09/13/19 07:52 History of Present Illness: HPI narrative: 33 yo female presents complaining of abdominal pain nausea vomiting began last night. Progressively worse through the night and this morning was severe. She denies any use of alcohol last night she reports she has recurrent pancreatitis. She is not had any other symptoms denies dysuria urgency or frequency has had a lot of nausea vomiting is mostly bilious denies any hematemesis coffee-ground emesis. Denies any other recent respiratory illnesses. MD elicited complaint: abdominal pain Pertinent past history: other (recurrent pancreatitis) Onset (ago): hour(s) Location: Epigastric and LUQ Quality: aching Radiation: none Migration to: LUQ and epigastric Exacerbating factors: eating Relieving factors: medication Associated Symptoms: Reports anorexia, bloating, GI cramping and vomiting; Denies chills, coffee ground emesis, fever(s), hematochezia, hematuria, hematemesis, melena and nausea Related Data: Date of Last Menstrual Period: 05/30/19 Review of Systems Const: Denies: fever(s), chills, body aches, change in appetite, fatigue or malaise ENMT: Denies: throat pain, ear or mastoid pain, nasal discharge or nasal congestion Card: Denies: chest pain, edema, dyspnea on exertion or orthopnea Resp: Denies: dyspnea, productive cough or non-productive cough GI: Reports: vomiting, bloating and GI cramping; Denies: nausea, hematemesis, coffee ground emesis, hematochezia or melena : Denies: hematuria Skin/Breast: Denies: rash or pruritus PFSH ED PFSH: Medical History Anxiety Bipolar 1 disorder Depression Gastroesophageal reflux disease Peptic ulcer disease Social History Smoking and tobacco status: current every day smoker Female Reproductive History: Date of last menstrual period: 05/30/19 Physical Exam Const: COMMON NORMALS: no acute distress GENERAL APPEARANCE: cooperative and comfortable ORIENTATION/CONSCIOUSNESS: Yes awake, Yes oriented to person, Yes oriented to place and Yes oriented to time HENMT: COMMON NORMALS: normocephalic, atraumatic, hearing grossly normal bilaterally, external ears normal, EAC's normal, TM's normal bilaterally, Normal nasal mucous membranes and turbinates present, moist oral mucous membranes and oropharynx normal HEAD & SCALP: normocephalic and atraumatic NOSE: Normal nasal mucous membranes and turbinates present EXTERNAL EAR: Yes external ears normal EXTERNAL AUDITORY CANAL: EAC's normal TYMPANIC MEMBRANE: TM's normal bilaterally Eye: COMMON NORMALS: Equal, round and reactive pupils present, EOMs intact bilaterally, conjunctivae normal and no scleral icterus CONJUNCTIVA: Yes co njunctivae normal PUPIL: Yes Equal, round and reactive pupils present Neck/C-Spine: COMMON NORMALS: full ROM, no lymphadenopathy, supple and no JVD Lymph: LYMPHATIC: no lymphadenopathy noted and no lymphedema noted Resp: COMMON NORMALS: normal respiratory effort, No retractions, No use of accessory muscles and clear to auscultation bilaterally AUSCULTATION: clear to auscultation bilaterally Cardio: COMMON NORMALS: no JVD, regular rate, regular rhythm and No murmurs present (Cardio) RATE: regular rate RHYTHM: regular rhythm GI: COMMON NORMALS: Soft to palpation and No hepatosplenomegaly present AUSCULTATION: Yes normoactive bowel sounds PALPATION: Yes Soft to palpation, No Tenderness to palpation present (GI), No Guarding due to palpation present (GI) and Yes No hepatosplenomegaly present Extremity: COMMON NORMALS: normal to inspection, capillary refill normal, no clubbing, cyanosis or edema, no calf tenderness and no pedal edema Neuro: SENSORIUM/ORIENTATION: Yes oriented to person, Yes oriented to place and Yes oriented to time Skin: COMMON NORMALS: no rashes or lesions noted GENERAL SKIN EXAM: no rashes or lesions noted Course Vital Signs: Vital signs: Vital Signs Temperature 97.9 F 09/13/19 07:58 Pulse Rate 70 09/13/19 13:18 Respiratory Rate 18 09/13/19 13:18 Blood Pressure 128/87 09/13/19 13:18 Pulse Oximetry 95 09/13/19 13:18 MDM - Abdominal Pain MDM Narrative: Medical decision making narrative: Reviewed findings with the patient discharged home with Ativan and Zofran to use PRN for nausea and vomiting she uses marijuana on a regular basis discussed with her that that will cause some trouble with recurrent nausea and vomiting that is refractory to a lot of medications 1 of the best things is topical Zostrix cream warm showers and ultimately decreasing the amount of marijuana use or stopping completely. Lab Data: Labs: Lab Results 09/13/19 09/13/19 09/13/19 Range/Units 08:15 08:15 08:15 WBC 13.5 H (4.0-10.0) 10^3/ uL RBC 5.10 (4.1-5.3) 10^6/u L Hgb 12.4 (11.5-15.3) g/dL Hct 40.4 (37.0-47.0) % MCV 79.2 L (81-99) fL MCH 24.3 L (28.0-34.0) pg MCHC 30.7 (30.0-36.0) g/dL RDW 19.3 H (12.1-15.1) % Plt Count 294 (130-400) 10^3/c mm MPV 11.2 H (7.4-10.4) fL Neut % (Auto) 77.1 % Lymph % (Auto) 14.1 % Dickinson % (Auto) 5.8 % Eos % (Auto) 1.9 % Baso % (Auto) 0.7 % Neut # (Auto) 10.4 H (1.8-7.7) 10^3/u L Lymph # (Auto) 1.9 (0.8-4.8) 10^3/u L Dickinson # (Auto) 0.8 (0.2-0.9) 10^3/u L Eos # (Auto) 0.3 (0.0-0.8) 10^3/u L Baso # (Auto) 0.1 (0.0-0.1) 10^3/u L Nucleated RBC % (a uto) 0 % Nucleated RBCs # 0.0 /100WBC Sodium 140 (136-145) mmol/L Potassium 4.0 (3.5-5.1) mmol/L Chloride 109 H (98-107) mmol/L Carbon Dioxide 19 L (22-29) mmol/L Anion Gap 16.0 (5-19) BUN 13 (6-20) mg/dL Creatinine 0.5 (0.5-0.9) mg/dL GFR Calculation 140.4 H (90-130) mL/min Glucose 150 H (65-115) mg/dL Calculated Osmolal ity 289 (285-295) mOsm/k g Lactate 1.0 (0.5-2.2) mmol/L Calcium 8.8 (8.5-10.5) mg/dL Total Bilirubin 0.2 (0.15-1.2) mg/dL AST 13 (0-32) U/L ALT 14 (0-33) U/L Alkaline Phosphata se 91 (35-105) IU/L Total Protein 6.5 L (6.6-8.7) g/dL Albumin 4.1 (3.5-5.2) g/dL Globulin 2.4 (1.3-4.6) g/dL Lipase 82 H (13-60) U/L Urine Color (Yellow) Urine Appearance (CLEAR) Urine pH (5-7) Ur Specific Gravit y (1.005-1.030) Urine Protein (Negative) Urine Glucose (UA) (Normal) Urine Ketones (Negative) Urine Blood (Negative) Urine Nitrate (Negative) Urine Bilirubin (NEGATIVE) Prot Sulfosalicyli c Acd (Negative) Urine Urobilinogen (Negative) mg/dL Ur Leukocyte Gina ase (Negative) Serum Ketones (Negative) 09/13/19 09/13/19 Range/Units 08:15 11:20 WBC (4.0-10.0) 10^3/ uL RBC (4.1-5.3) 10^6/u L Hgb (11.5-15.3) g/dL Hct (37.0-47.0) % MCV (81-99) fL MCH (28.0-34.0) pg MCHC (30.0-36.0) g/dL RDW (12.1-15.1) % Plt Count (130-400) 10^3/c mm MPV (7.4-10.4) fL Neut % (Auto) % Lymph % (Auto) % Dickinson % (Auto) % Eos % (Auto) % Baso % (Auto) % Neut # (Auto) (1.8-7.7) 10^3/u L Lymph # (Auto) (0.8-4.8) 10^3/u L Dickinson # (Auto) (0.2-0.9) 10^3/u L Eos # (Auto) (0.0-0.8) 10^3/u L Baso # (Auto) (0.0-0.1) 10^3/u L Nucleated RBC % (a uto) % Nucleated RBCs # /100WBC Sodium (136-145) mmol/L Potassium (3.5-5.1) mmol/L Chloride (98-107) mmol/L Carbon Dioxide (22-29) mmol/L Anion Gap (5-19) BUN (6-20) mg/dL Creatinine (0.5-0.9) mg/dL GFR Calculation (90-130) mL/min Glucose (65-115) mg/dL Calculated Osmolal ity (285-295) mOsm/k g Lactate (0.5-2.2) mmol/L Calcium (8.5-10.5) mg/dL Total Bilirubin (0.15-1.2) mg/dL AST (0-32) U/L ALT (0-33) U/L Alkaline Phosphata se (35-105) IU/L Total Protein (6.6-8.7) g/dL Albumin (3.5-5.2) g/dL Globulin (1.3-4.6) g/dL Lipase (13-60) U/L Urine Color Yellow (Yellow) Urine Appearance Clear (CLEAR) Urine pH 8.0 H (5-7) Ur Specific Gravit y 1.010 (1.005-1.030) Urine Protein Neg (Negative) Urine Glucose (UA) Norm (Normal) Urine Ketones 1+ H (Negative) Urine Blood Neg (Negative) Urine Nitrate Negative (Negative) Urine Bilirubin Neg (NEGATIVE) Prot Sulfosalicyli c Acd Negative (Negative) Urine Urobilinogen Norm (Negative) mg/dL Ur Leukocyte Gina ase Negative (Negative) Serum Ketones Negative (Negative) Discharge Plan Discharge Patient Disposition: Home, Self-Care Clinical Impression: Cyclic vomiting syndrome Condition: Stable Prescriptions: New Ativan 1 mg tablet 1 mg PO Q6H PRN (Reason: nausea and vomiting) Qty: 10 RF: 0 Zofran 4 mg tablet 4 mg PO Q6H PRN (Reason: nausea and vomiting) Qty: 20 RF: 0 No Action ondansetron 8 mg tablet,disintegrating 8 mg PO Q12H PRN (Reason: Nausea) RF: 0 lorazepam 0.5 mg tablet 0.5 mg PO Q8H PRN (Reason: Anxiety) RF: 0 amitriptyline 10 mg tablet 10 mg PO BEDTIME RF: 0 Lyrica 100 mg Capsule 100 mg PO DAILY RF: 0 tramadol 50 mg tablet 50 - 100 mg PO Q6H PRN (Reason: pain) RF: 0 Robaxin-750 750 mg tablet 750 mg PO Q6H Qty: 30 RF: 0 Discharge Orders: Discharge Order (Routine); Ordered 09/13/19 Ordered By: Guille Morin Discharge Diet: Clear Liquid Discharge Activity: Increase activity as tolerated Patient Instructions: Marijuana Abuse, Medicinal Use of Cannabis (ED), Vomiting - Adult Activity Restrictions/Additional Instructions: Avoid use of marijuana. Use the above medicines as needed clear liquid diet for 24 to 48 hours and advance as tolerated Discharge Date/Time: 09/13/19 13:05 Coding Level of Care Code ED Automatic [employer] Threading Machine Feeder for Anthony 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
--- NOTE | 2019-09-13 08:08 | CT_ITS ---
WS: [id number] CT abdomen pelvis w con* [id number] REASON FOR EXAM: abd pain IV CONTRAST ADMINISTERED: Omnipaque 300, 95 mL TOTAL EXAM DLP: 623.[address] scans at [facility] use at least one of these dose optimization techniques: automat ed exposure control; mA and/or kV adjustment per patient size (includes targeted exams where dose is matched to clinical indication); or iterative reconstruction. FINDINGS: The lower lung varela show normal findings in the mediastinum was normal. The liver shows in the right lobe a hemangioma and a small cyst of the left lobe. A small hiatal hernia is noted. The spleen was normal with no infiltration. The stomach showed no abnormalities. The pancreas head, body, tail were normal. The gallbladder showed no stones. The aorta inferior vena cava were normal. The right and left kidneys were normal. The right colon show normal appearance the appendix was normal in size. The small bowel patterns are all normal with no infiltrating changes or wall thickness. The uterus me asured 12.6 x 7.9 x 11 cm varicosities are seen overriding the right and left uterus. These are numer ous. The adnexa appear to be normal. No free fluid in the pelvis. The rectum was normal. The urinary bladder was compressed and not well visualized. CT/CT abdomen pelvis w con* [id number] IMPRESSION: Enlarged uterus with numerous varicosities overriding the uterus. Small hemangioma the right lobe of the liver Small cyst of the left lobe of the liver Small hiatal hernia comparisons were made to the previous study and July 03, 2019 and enlarged uter us was seen at that time appears to be slightly larger this time.
--- NOTE | 2019-09-13 08:08 | XR_ITS ---
WS: [id number] XR chest 1V portable [id number] REASON FOR EXAM: dyspnea/cough FINDINGS: The heart and mediastinal interfaces normal. Scattered small granulomas are again seen in both lung varela similar to May 30, 2019. The lung varela show no pneumonia, pleural effusion, pulmonary edema, or mass effect. The hilum and apices normal. No osseous abnormalities. XR/XR chest 1V portable [id number] IMPRESSION: Negative chest for acute findings.
[2019-09-13 08:29] LABS: Basophils # 0.1 10^3/uL (0.0-0.1); Basophils % 0.7 %; Eosinophils # 0.3 10^3/uL (0.0-0.8); Eosinophils % 1.9 %; Hematocrit 40.4 % (37.0-47.0); Hemoglobin 12.4 g/dL (11.5-15.3); Lymphocytes # 1.9 10^3/uL (0.8-4.8); Lymphocytes % 14.1 %; Mean Corpuscular HGB Conc 30.7 g/dL (30.0-36.0); Mean Corpuscular Hemoglobin 24.3 pg (28.0-34.0); Mean Corpuscular Volume 79.2 fL (81-99); Mean Platelet Volume 11.2 fL (7.4-10.4); Monocytes # 0.8 10^3/uL (0.2-0.9); Monocytes % 5.8 %; Neutrophils # 10.4 10^3/uL (1.8-7.7); Neutrophils % 77.1 %; Nucleated Red Blood Cells % 0 %; Platelet Count 294 10^3/cmm (130-400); Red Cell Distribution Width 19.3 % (12.1-15.1); White Blood Count 13.5 10^3/uL (4.0-10.0)
[2019-09-13] MEDS: morphine 4 mg/mL SDV 1 mL IVP ×2 (08:46→10:56)
[2019-09-13 08:49] LABS: Alanine Aminotransferase 14 U/L (0-33); Albumin Level 4.1 g/dL (3.5-5.2); Alkaline Phosphatase 91 IU/L (35-105); Aspartate Amino Transferase 13 U/L (0-32); Blood Urea Nitrogen 13 mg/dL (6-20); Calcium 8.8 mg/dL (8.5-10.5); Carbon Dioxide 19 mmol/L (22-29); Chloride 109 mmol/L (98-107); Globulin 2.4 g/dL (1.3-4.6); Glomerular Filtration Rate 140.4 mL/min (90-130); Glucose 150 mg/dL (65-115); Lipase 82 U/L (13-60); Osmolality Calculated 289 mOsm/kg (285-295); Sodium 140 mmol/L (136-145); Total Bilirubin 0.2 mg/dL (0.15-1.2); Total Protein 6.5 g/dL (6.6-8.7)
[2019-09-13 08:54] LABS: Ketone (Acetest) Serum Negative (Negative)
[2019-09-13] MEDS: iohexol 300 mg/mL 100 mL Btl IV (09:23)
[2019-09-13] MEDS: metoclopramide 5 mg/mL SDV 2 mL 10 MG IVP (10:54)
[2019-09-13 11:34] LABS: Add Urine Microscopic? NO
[2019-09-13] MEDS: LORazepam 2 mg/mL INJ 1 mL IVP (11:55)
[2019-09-13] MEDS: haloperidol inj 5 mg/mL INJ 1 mL IVP (11:55)
[2019-09-13 12:00] LABS: Urine Appearance Clear (CLEAR); Urine Color Yellow (Yellow)
[2019-09-13 12:06] LABS: Bilirubin Urine Neg (NEGATIVE); Blood Urine Neg (Negative); Glucose Urine UA Norm (Normal); Ketones Urine 1+ (Negative); Leukocyte Esterase Urine Negative (Negative); Nitrate Urine Negative (Negative); Protein Urine Neg (Negative); Sulfosalicylic Acid Urine Negative (Negative); Urobilinogen Urine Norm (Negative)
== END 2019-09-13 13:05 | disposition home or self-care (01) ==
PROVIDERS: Emergency Provider Family Medicine
DX: R11.15 Cyclical vomiting syndrome unrelated to migraine (principal); F17.210 Nicotine dependence, cigarettes, uncomplicated
CPT/HCPCS: 12345; 36415; 71045; 74177; 80053; 81003; 82009; 83605; 83690; 85025; 96360; 96361; 96374; 96375; 96376; 99284; J1630; J2060; J2270; J2405; J2765; J7030; Q9967

== ENCOUNTER 2019-09-15 12:10 | Emergency (ER) | payer MEDICAID, SELFPAY ==
[2019-09-15 12:11] VITALS: BMI 23.5
--- NOTE | 2019-09-15 12:11 | XR_ITS ---
WS: [id number] XR shoulder LT min 2V* [id number] REASON FOR EXAM: pain FINDINGS: Glenoid humeral articulation normal. There is hypertrophy of the distal clavicle the acromioclavicular joint is normal otherwise. The body of the scapula and clavicle show no fractures. XR/XR shoulder LT min 2V* [id number] IMPRESSION: Hypertrophy of the distal clavicle producing mild impingement changes at the [facility].
[2019-09-15 12:15] VITALS: BP 127/72; PULSE 62; RESP 18; TEMP 36.6; O2SAT 99
--- NOTE | 2019-09-15 12:15 | W.ED.EXTPRO ---
HPI - Extremity Problem General: Chief complaint: Extremity Problem,Nontraumatic Stated complaint: LEFT SHOULDER PAIN Time Seen by Provider: 09/15/19 12:11 Source: patient and EMS Mode of arrival: EMS Limitations: no limitations History of Present Illness: HPI Narrative: 33-year-old female states she has left shoulder pain over the last 2 days. States pain is sharp in nature and was improving but she pushed mowed yesterday and states that it flared up. States it is now very painful and hurts anytime she moves it. It is improved with rest and worse with movement. Complaint: extremity pain and joint pain Onset (ago): day(s) Pain Consistency: constant Location: left Severity scale (1-10): 7 Associated symptoms: Deny chest pain, fever(s) or rash Review of Systems Const: Denies: fever(s), chills, body aches or change in appetite Eyes: Denies: blurry vision or eye discomfort ENMT: Denies: throat pain or dental pain Card: Denies: chest pain Resp: Denies: dyspnea GI: Denies: abdominal pain, nausea, vomiting or diarrhea : Denies: dysuria Musc: Reports: extremity pain Skin/Breast: Denies: rash Neuro: Denies: headache(s) Psych: Denies: depression Jasbir/Lymph: Denies: easy bruising All/Imm: Denies: urticaria PFSH ED PFSH: Medical History Anxiety Bipolar 1 disorder Depression Gastroesophageal reflux disease Peptic ulcer disease Social History Smoking and tobacco status: current every day smoker Female Reproductive History: Date of last menstrual period: 06/30/19 Physical Exam Const: COMMON NORMALS: no acute distress, patient oriented x3 and healthy appearing HENMT: COMMON NORMALS: normocephalic and atraumatic HEAD & SCALP: normocephalic and atraumatic Eye: COMMON NORMALS: Equal, round and reactive pupils present and EOMs intact bilaterally PUPIL: Yes Equal, round and reactive pupils present Neck/C-Spine: COMMON NORMALS: full ROM and supple Chest: COMMONS NORMALS: normal inspection of the chest and normal palpation of entire chest wall Resp: COMMON NORMALS: normal respiratory effort, No retractions, No use of accessory muscles and clear to auscultation bilaterally AUSCULTATION: clear to auscultation bilaterally Cardio: COMMON NORMALS: regular rate, regular rhythm and No murmurs present (Cardio) RATE: regular rate RHYTHM: regular rhythm GI: COMMON NORMALS: Normal to inspection, nondistended, normoactive bowel sounds present, Soft to palpation, non-tender and no masses PALPATION: Yes Soft to palpation Extremity: COMMON NORMALS: normal to inspection NARRATIVE EXTREMITY EXAM: Tenderness over left shoulder with pain with range of motion Neuro: COMMON NORMALS: patient oriented x3, moves all extremities and no focal motor deficits Psych: COMMON NORMALS: mental status grossly normal, Normal thought process present and cooperative THOUGHT PROCESS: Normal thought process present Skin: COMMON NORMALS: no rashes or lesions noted and no wounds GENERAL SKIN EXAM: no rashes or lesions noted Course Vital Signs: Vital signs: Vital Signs Temperature 97.8 F 09/15/19 12:15 Pulse Rate 56 L 09/15/19 13:09 Respiratory Rate 14 09/15/19 13:09 Blood Pressure 166/84 09/15/19 13:09 Pulse Oximetry 98 09/15/19 13:09 MDM - Extremity (Nontraumatic) MDM Narrative: Medical decision making narrative: pt presents here with left shoulder pain and spasm. pt xr here is normal. pt placed in a sling and is stable for discharge. Imaging Data^: xr l shoulder: Attestation: I personally reviewed and interpreted this imaging study as follows: My impression: no acute abnormality Discharge Plan Discharge Patient Disposition: Home, Self-Care Clinical Impression: Left shoulder strain Qualifiers: Encounter type: initial encounter Qualified Code(s): S46.912A - Strain of unspecified muscle, fascia and tendon at shoulder and upper arm level, left arm, initial encounter Condition: Stable Prescriptions: New Robaxin-750 750 mg tablet 750 mg PO Q6H Qty: 30 RF: 0 No Action ondansetron 8 mg tablet,disintegrating 8 mg PO Q12H PRN (Reason: Nausea) RF: 0 lorazepam 0.5 mg tablet 0.5 mg PO Q8H PRN (Reason: Anxiety) RF: 0 amitriptyline 10 mg tablet 10 mg PO BEDTIME RF: 0 Lyrica 100 mg Capsule 100 mg PO DAILY RF: 0 tramadol 50 mg tablet 50 - 100 mg PO Q6H PRN (Reason: pain) RF: 0 Ativan 1 mg tablet 1 mg PO Q6H PRN (Reason: nausea and vomiting) Qty: 10 RF: 0 Zofran 4 mg tablet 4 mg PO Q6H PRN (Reason: nausea and vomiting) Qty: 20 RF: 0 Discharge Orders: Discharge Order (Routine); Ordered 09/15/19 Ordered By: Anjel Baca Discharge Diet: Advance as tolerated Discharge Activity: Resume usual activity Discharge Date/Time: 09/15/19 13:11 Coding Level of Care Code ED Regulatory Product Manager for Chg 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
[2019-09-15] MEDS: LORazepam 2 mg/mL INJ 1 mL 1 MG IVP (12:24)
[2019-09-15] MEDS: acetaminophen 325 mg Tablet 650 MG PO (12:51)
[2019-09-15] MEDS: ondansetron 4 MG Tablet PO (12:52)
[2019-09-15] MEDS: ondansetron 2 mg/ML SDV 2 mL 4 MG IVP (12:59)
[2019-09-15 13:09] VITALS: BP 166/84; PULSE 56; RESP 14; O2SAT 98
== END 2019-09-15 13:11 | disposition home or self-care (01) ==
PROVIDERS: Emergency Provider Emergency Medicine
DX: S46.912A Strain of unspecified muscle, fascia and tendon at shoulder and upper arm level, left arm, initial encounter (principal); F17.210 Nicotine dependence, cigarettes, uncomplicated; X58.XXXA Exposure to other specified factors, initial encounter
CPT/HCPCS: 12345; 73030; 96374; 96375; 99282; 99283; J2060; J2405; Q0162

== ENCOUNTER 2020-01-06 12:27 | Emergency (ER) | payer MEDICAID, SELFPAY ==
[2020-01-06] VITALS (8 sets, daily range): BP systolic 107–156; BP diastolic 44–95; PULSE 51–58; RESP 12–20; TEMP 36.3; O2SAT 94–99; BMI 23.5
--- NOTE | 2020-01-06 12:37 | ECG_ITS ---
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 Measurements Intervals [place] Rate: 44 P: 66 MS: 157 QRS: 73 QRSD: 95 T: 66 QT: 451 QTc: 388 Interpretive Statements SINUS BRADYCARDIA WITH MARKED SINUS ARRHYTHMIA Compared to ECG 05/30/2019 15:51:22 No significant changes Electronically Signed On 01-06-2020 21:39:33 CDT by Abdi Maria M.D. [email or web address]. [id number]
--- NOTE | 2020-01-06 12:37 | XR_ITS ---
WS: [id number] XR chest 1V portable [id number] REASON FOR EXAM: cp FINDINGS: The heart and mediastinum are within normal limits. No active pulmonary parenchymal or pleural disease is noted. Small calcified granuloma in the right u pper lung. The bony thorax is unremarkable. The chest is unchanged compared to previous examination of 09/13/2019. XR/XR chest 1V portable [id number] IMPRESSION: No acute chest abnormality.
--- NOTE | 2020-01-06 12:51 | ED_ITS ---
HPI - Chest Pain General: Chief Complaint: Chest Pain Stated Complaint: SEVERE CHEST PAIN Time Seen by Provider: 01/06/20 12:37 Source: patient and EMS Mode of arrival: EMS Limitations: no limitations History of Present Illness: HPI narrative: 34-year-old female who has a history of chronic abdominal pain along with cyclical vomiting syndrome. States over the last 2 days she has had severe epigastric abdominal pain along with nausea and vomiting. Patient states her pain is a 9 out of 10. She denies any worsening improving factors. States the pain radiates into her chest. She denies any shortness of breath. She denies any fevers. Associated symptoms: Reports abdominal pain, nausea and vomiting; Deny dyspnea or fever(s) Review of Systems Const: Denies: fever(s), chills, body aches or change in appetite Eyes: Denies: blurry vision or eye discomfort ENMT: Denies: throat pain or dental pain Card: Reports: chest pain Resp: Denies: dyspnea GI: Reports: abdominal pain, nausea and vomiting : Denies: dysuria Musc: Denies: neck pain or back pain Skin/Breast: Denies: rash Neuro: Denies: headache(s) Psych: Denies: depression Jasbir/Lymph: Denies: easy bruising All/Imm: Denies: urticaria PFSH ED PFSH: Medical History Anxiety Bipolar 1 disorder Depression Gastroesophageal reflux disease Peptic ulcer disease Social History Smoking and tobacco status: current every day smoker Female Reproductive History: Date of last menstrual period: 06/30/19 Physical Exam Const: COMMON NORMALS: patient oriented x3 and healthy appearing GENERAL APPEARANCE: in distress HENMT: COMMON NORMALS: normocephalic and atraumatic HEAD & SCALP: normocephalic and atraumatic Eye: COMMON NORMALS: Equal, round and reactive pupils present and EOMs intact bilaterally PUPIL: Yes Equal, round and reactive pupils present Neck/C-Spine: COMMON NORMALS: full ROM and supple Chest: COMMONS NORMALS: normal inspection of the chest and normal palpation of entire chest wall Resp: COMMON NORMALS: normal respiratory effort, No retractions, No use of accessory muscles and clear to auscultation bilaterally AUSCULTATION: clear to auscultation bilaterally Cardio: COMMON NORMALS: regular rate, regular rhythm and No murmurs present (Cardio) RATE: regular rate RHYTHM: regular rhythm GI: COMMON NORMALS: Normal to inspection, nondistended, normoactive bowel sounds present, Soft to palpation, non-tender and no masses PALPATION: Yes Soft to palpation Extremity: COMMON NORMALS: normal to inspection and full ROM Neuro: COMMON NORMALS: patient oriented x3, moves all extremities and no focal motor deficits Psych: COMMON NORMALS: mental status grossly normal, Normal thought process present and cooperative THOUGHT PROCESS: Normal thought process present Skin: COMMON NORMALS: no rashes or lesions noted and no wounds GENERAL SKIN EXAM: no rashes or lesions noted Course Vital Signs: Vital signs: Vital Signs Temperature 97.4 F L 01/06/20 12:27 Pulse Rate 58 L 01/06/20 15:36 Respiratory Rate 12 01/06/20 15:36 Blood Pressure 107/44 01/06/20 15:36 Pulse Oximetry 94 01/06/20 15:36 MDM - Chest Pain MDM Narrative: Medical decision making narrative: Patient presents here with epigastric abdominal pain along with atypical chest pain. Patient's blood work here came back normal CT abdomen is negative. She feels much improved here as well. We will place her on Reglan and she is stable for discharge. She is to follow-up with PCP and return if worsening. Lab Data: Labs: Lab Results 01/06/20 01/06/20 01/06/20 Range/Units 12:45 12:45 12:45 WBC 17.0 H (4.0-10.0) 10^3/ uL RBC 5.25 (4.1-5.3) 10^6/u L Hgb 14.0 (11.5-15.3) g/dL Hct 42.3 (37.0-47.0) % MCV 80.6 L (81-99) fL MCH 26.7 L (28.0-34.0) pg MCHC 33.1 (30.0-36.0) g/dL RDW 16.1 H (12.1-15.1) % Plt Count 358 (130-400) 10^3/c mm MPV 11.5 H (7.4-10.4) fL Neut % (Auto) 84.5 % Lymph % (Auto) 10.1 % [place] % (Auto) 3.6 % Eos % (Auto) 0.2 % Baso % (Auto) 0.5 % Neut # (Auto) 14.36 H (1.8-7.7) 10^3/u L Lymph # (Auto) 1.7 (0.8-4.8) 10^3/u L [place] # (Auto) 0.6 (0.2-0.9) 10^3/u L Eos # (Auto) 0.0 (0.0-0.8) 10^3/u L Baso # (Auto) 0.1 (0.0-0.1) 10^3/u L Nucleated RBC % (a uto) 0 % Nucleated RBCs # 0.0 /100WBC Sodium 143 (136-145) mmol/L Potassium 4.0 (3.5-5.1) mmol/L Chloride 107 (98-107) mmol/L Carbon Dioxide 20 L (22-29) mmol/L Anion Gap 20.0 H (5-19) BUN 17 (6-20) mg/dL Creatinine 0.6 (0.5-0.9) mg/dL GFR Calculation 113.1 (90-130) mL/min Glucose 180 H (65-115) mg/dL Calculated Osmolal ity 302 H (285-295) mOsm/k g Calcium 9.7 (8.5-10.5) mg/dL Total Bilirubin 0.2 (0.15-1.2) mg/dL AST 15 (0-32) U/L ALT 17 (0-33) U/L Alkaline Phosphata se 97 (35-105) IU/L Troponin T Baselin e 6 (0-10) ng/L Troponin T 120 Min hughes (0-10) ng/L Delta Troponin T (0-10) ABS# Total Protein 7.0 (6.6-8.7) g/dL Albumin 4.4 (3.5-5.2) g/dL Globulin 2.6 (1.3-4.6) g/dL Lipase 116 H (13-60) U/L 01/06/20 Range/Units 15:00 WBC (4.0-10.0) 10^3/ uL RBC (4.1-5.3) 10^6/u L Hgb (11.5-15.3) g/dL Hct (37.0-47.0) % MCV (81-99) fL MCH (28.0-34.0) pg MCHC (30.0-36.0) g/dL RDW (12.1-15.1) % Plt Count (130-400) 10^3/c mm MPV (7.4-10.4) fL Neut % (Auto) % Lymph % (Auto) % [place] % (Auto) % Eos % (Auto) % Baso % (Auto) % Neut # (Auto) (1.8-7.7) 10^3/u L Lymph # (Auto) (0.8-4.8) 10^3/u L [place] # (Auto) (0.2-0.9) 10^3/u L Eos # (Auto) (0.0-0.8) 10^3/u L Baso # (Auto) (0.0-0.1) 10^3/u L Nucleated RBC % (a uto) % Nucleated RBCs # /100WBC Sodium (136-145) mmol/L Potassium (3.5-5.1) mmol/L Chloride (98-107) mmol/L Carbon Dioxide (22-29) mmol/L Anion Gap (5-19) BUN (6-20) mg/dL Creatinine (0.5-0.9) mg/dL GFR Calculation (90-130) mL/min Glucose (65-115) mg/dL Calculated Osmolal ity (285-295) mOsm/k g Calcium (8.5-10.5) mg/dL Total Bilirubin (0.15-1.2) mg/dL AST (0-32) U/L ALT (0-33) U/L Alkaline Phosphata se (35-105) IU/L Troponin T Baselin e (0-10) ng/L Troponin T 120 Min hughes 6.00 (0-10) ng/L Delta Troponin T 0 (0-10) ABS# Total Protein (6.6-8.7) g/dL Albumin (3.5-5.2) g/dL Globulin (1.3-4.6) g/dL Lipase (13-60) U/L Imaging Data^: CXR: Attestation: I personally reviewed and interpreted this imaging study as follows: Radiologist's impression: [address] [address] XRay Report Signed Patient: Sanam Prieto Unit #: [id number] : 1985 Age/Sex: 34 / F ADM Date: 01/06/20 Loc: ER Room/Bed: Attending Dr: Ordering Provider/Ordering MD: Anjel Baca MD Date of Service: 01/06/20 Procedure(s): XR chest 1V portable [id number] Accession Number(s): [id number] Report Number: [id number] WS: [id number] XR chest 1V portable [id number] REASON FOR EXAM: cp FINDINGS: The heart and mediastinum are within normal limits. No active pulmonary parenchymal or pleural disease is noted. Small calcified granuloma in the right upper lung. The bony thorax is unremarkable. The chest is unchanged compared to previous examination of 09/13/2019. XR/XR chest 1V portable [id number] IMPRESSION: No acute chest abnormality. CT Abd/Pel: Radiologist's impression: [address] [address] [address] Scan Report Signed Patient: Sanam Prieto Unit #: [id number] : 1985 Age/Sex: 34 / F ADM Date: 01/06/20 Loc: ER Room/Bed: Attending Dr: Ordering Provider/Ordering MD: Anjel Baca MD Date of Service: 01/06/20 Procedure(s): CT abdomen pelvis w con* [id number] Accession Number(s): [id number] Report Number: [id number] PROCEDURE INFORMATION: Exam: CT Abdomen And Pelvis With Contrast Exam date and time: 01/06/2020 3:27 PM Age: 34 years old Clinical indication: Abdominal pain; Patient HX: Generalized abd pain with n/v TECHNIQUE: Imaging protocol: Computed tomography of the abdomen and pelvis with intravenous contrast. Radiation optimization: All CT scans at this facility use at least one of these dose optimization techniques: automated exposure control; mA and/or kV adjustment per patient size (includes targeted exams where dose is matched to clinical indication); or iterative reconstruction. Contrast material: OMNI 300; Contrast volume: 95 ml; Contrast route: INTRAVENOUS (IV); COMPARISON: CT abdomen pelvis w con* [id number] 09/13/2019 9:13 AM RADIATION DOSE METRICS: Total DLP (mGy-cm): 627.98 FINDINGS: Mediastinal space: A small hiatal hernia is present. Liver: There is a diffuse decrease in hepatic parenchymal density, consistent with fatty infiltration. There is unchanged hypodensity in the posterior right lobe of the liver image 13 measuring about 1.3 cm in size that may be a partially opacified hemangioma or geographic fatty infiltration. Unchanged small hypodensity left lobe of the liver. Probable additional small hemangioma in the right lobe of the liver just below the diaphragm measuring about 8 mm in size image 7 unchanged since the prior exam. Gallbladder and bile ducts: Normal. No calcified stones. No ductal dilation. Pancreas: Normal. No ductal dilation. Spleen: Normal. No splenomegaly. Adrenals: Normal. No mass. Kidneys and ureters: There is no evidence of hydronephrosis. There is no evidence of renal calcifications. Stomach and bowel: There is no evidence of intestinal perforation or obstruction. There is no evidence of intestinal perforation or obstruction. There is no evidence of colitis/diverticulitis. Appendix: A normal appendix is identified. Intraperitoneal space: Unremarkable. No free air. No significant fluid collection. Vasculature: Unremarkable.No abdominal aortic aneurysm. Lymph nodes: Unremarkable.No enlarged lymph nodes. Urinary bladder: The bladder is decompressed. Reproductive: There is a tampon in the vagina. Uterus and ovaries are unchanged. Unchanged uterine enlargement. No ovarian cysts. There are varicosities in the left adnexa. Bones/joints: Unremarkable. No acute fracture. Soft tissues: Unremarkable. There is a small fat-containing umbilical hernia. CT/CT abdomen pelvis w con* [id number] IMPRESSION: No acute abnormality. No bowel thickening or inflammatory changes. No hydronephrosis. EKG Data^: EKG 1: Attestation: I personally reviewed and interpreted this EKG as follows: EKG interpretation date: 01/06/20 Interpretation: sinus mundo hr [address] or t wave abnormalities EKG 2: Attestation: I personally reviewed and interpreted this EKG as follows: EKG interpretation date: 01/06/20 EKG interpretation time: 14:39 Interpretation: sinus mundo hr [address] or t wave abnormalities qrs 93 qtc 403 Discharge Plan Discharge Patient Disposition: Home Clinical Impression: Atypical chest pain, Abdominal pain Vomiting Qualifiers: Vomiting type: unspecified Vomiting Intractability: non-intractable Nausea presence: with nausea Qualified Code(s): R11.2 - Nausea with vomiting, unspecified Condition: Stable Prescriptions: New Reglan 10 mg tablet 10 mg PO Q6H PRN (Reason: nausea and vomiting) Qty: 20 RF: 0 No Action ondansetron 8 mg tablet,disintegrating 8 mg PO Q12H PRN (Reason: Nausea) RF: 0 amitriptyline 10 mg tablet 10 mg PO BEDTIME RF: 0 pregabalin [Lyrica] 100 mg Capsule 100 mg PO DAILY RF: 0 tramadol 50 mg tablet 50 - 100 mg PO Q6H PRN (Reason: pain) RF: 0 lorazepam [Ativan] 1 mg tablet 1 mg PO Q6H PRN (Reason: nausea and vomiting) Qty: 10 RF: 0 albuterol sulfate 2.5 mg /3 mL (0.083 %) solution for nebulization 2.5 mg inhalation Q6H PRN (Reason: Shortness Of Breath) RF: 0 Discharge Orders: Discharge Order (Routine); Ordered 01/06/20 Ordered By: Anjel Baca Discharge Diet: Advance as tolerated Discharge Activity: Resume usual activity Patient Instructions: Abdominal Pain (ED) Coding Level of Care Code ED Catalyst Unit Operator for Chg 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
[2020-01-06 12:58] LABS: Basophils # 0.1 10^3/uL (0.0-0.1); Basophils % 0.5 %; Eosinophils % 0.2 %; Hematocrit 42.3 % (37.0-47.0); Lymphocytes # 1.7 10^3/uL (0.8-4.8); Lymphocytes % 10.1 %; Mean Corpuscular HGB Conc 33.1 g/dL (30.0-36.0); Mean Corpuscular Hemoglobin 26.7 pg (28.0-34.0); Mean Corpuscular Volume 80.6 fL (81-99); Mean Platelet Volume 11.5 fL (7.4-10.4); Monocytes # 0.6 10^3/uL (0.2-0.9); Monocytes % 3.6 %; Neutrophils # 14.36 10^3/uL (1.8-7.7); Neutrophils % 84.5 %; Nucleated Red Blood Cells % 0 %; Platelet Count 358 10^3/cmm (130-400); Red Blood Count 5.25 10^6/uL (4.1-5.3); Red Cell Distribution Width 16.1 % (12.1-15.1)
[2020-01-06 13:22] LABS: Alanine Aminotransferase 17 U/L (0-33); Albumin Level 4.4 g/dL (3.5-5.2); Alkaline Phosphatase 97 IU/L (35-105); Aspartate Amino Transferase 15 U/L (0-32); Blood Urea Nitrogen 17 mg/dL (6-20); Calcium 9.7 mg/dL (8.5-10.5); Carbon Dioxide 20 mmol/L (22-29); Chloride 107 mmol/L (98-107); Creatinine Clr Calc Pharmacy 131.3223; Globulin 2.6 g/dL (1.3-4.6); Glomerular Filtration Rate 113.1 mL/min (90-130); Glucose 180 mg/dL (65-115); Lipase 116 U/L (13-60); Osmolality Calculated 302 mOsm/kg (285-295); Sodium 143 mmol/L (136-145); Total Bilirubin 0.2 mg/dL (0.15-1.2)
[2020-01-06 13:23] LABS: Troponin(5th) Baseline 6 ng/L (0-10)
[2020-01-06] MEDS: morphine 4 mg/mL SDV 1 mL IVP (13:25)
[2020-01-06] MEDS: ondansetron 2 mg/ML SDV 2 mL 4 MG IVP ×2 (13:26→15:18)
[2020-01-06] MEDS: diphenhydrAMINE 50 mg/mL SDV 1mL IVP (13:26)
[2020-01-06] MEDS: metoclopramide 5 mg/mL SDV 2 mL 10 MG IVP (13:26)
--- NOTE | 2020-01-06 14:37 | ECG_ITS ---
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 Measurements Intervals [place] Rate: 46 P: 65 AR: 150 QRS: 67 QRSD: 93 T: 51 QT: 443 QTc: 391 Interpretive Statements SINUS BRADYCARDIA WITH MARKED SINUS ARRHYTHMIA Compared to ECG 01/06/2020 13:15:50 No significant changes Electronically Signed On 01-06-2020 21:43:05 CDT by Abdi Maria M.D. [id number]
[2020-01-06] MEDS: HYDROmorphone 1 mg/mL INJ 1 mL IVP (15:19)
--- NOTE | 2020-01-06 15:25 | CTR_ITS ---
PROCEDURE INFORMATION: Exam: CT Abdomen And Pelvis With Contrast Exam date and time: 01/06/2020 3:27 PM Age: 34 years old Clinical indication: Abdominal pain; Patient HX: Generalized abd pain with n/v TECHNIQUE: Imaging protocol: Computed tomography of the abdomen and pelvis with intravenous contrast. Radiation optimization: All CT scans at this facility use at least one of these dose optimization techniques: automated exposure control; mA and/or kV adjustment per patient size (includes targeted exams where dose is matched to clinical indication); or iterative reconstruction. Contrast material: OMNI 300; Contrast volume: 95 ml; Contrast route: INTRAVENOUS (IV); COMPARISON: CT abdomen pelvis w con* [id number] 09/13/2019 9:13 AM RADIATION DOSE METRICS: Total DLP (mGy-cm): 627.98 FINDINGS: Mediastinal space: A small hiatal hernia is present. Liver: There is a diffuse decrease in hepatic parenchymal density, consistent with fatty infiltration. There is unchanged hypodensity in the posterior right lobe of the liver image 13 measuring about 1.3 cm in size that may be a partially opacified hemangioma or geographic fatty infiltration. Unchanged small hypodensity left lobe of the liver. Probable additional small hemangioma in the right lobe of the liver just below the diaphragm measuring about 8 mm in size image 7 unchanged since the prior exam. Gallbladder and bile ducts: Normal. No calcified stones. No ductal dilation. Pancreas: Normal. No ductal dilation. Spleen: Normal. No splenomegaly. Adrenals: Normal. No mass. Kidneys and ureters: There is no evidence of hydronephrosis. There is no evidence of renal calcifications. Stomach and bowel: There is no evidence of intestinal perforation or obstruction. There is no evidence of intestinal perforation or obstruction. There is no evidence of colitis/diverticulitis. Appendix: A normal appendix is identified. Intraperitoneal space: Unremarkable. No free air. No significant fluid collection. Vasculature: Unremarkable.No abdominal aortic aneurysm. Lymph nodes: Unremarkable.No enlarged lymph nodes. Urinary bladder: The bladder is decompressed. Reproductive: There is a tampon in the vagina. Uterus and ovaries are unchanged. Unchanged uterine enlargement. No ovarian cysts. There are varicosities in the left adnexa. Bones/joints: Unremarkable. No acute fracture. Soft tissues: Unremarkable. There is a small fat-containing umbilical hernia. CT/CT abdomen pelvis w con* [id number] IMPRESSION: No acute abnormality. No bowel thickening or inflammatory changes. No hydronephrosis. Radiation Dose CTDIVOL = (mGy): DLP = 627.98 (mGy-cm)
[2020-01-06 15:37] LABS: Troponin 5 2HR Delta 0 ABS# (0-10)
[2020-01-06] MEDS: iohexol 300 mg/mL 100 mL Btl IV (16:05)
[2020-01-06 16:43] LABS: Add Urine Microscopic? NO
[2020-01-06 16:58] LABS: Bilirubin Urine Neg (Negative); Blood Urine Neg (Negative); Glucose Urine UA Norm (Normal); Ketones Urine Negative (Negative); Leukocyte Esterase Urine Negative (Negative); Nitrate Urine Negative (Negative); Protein Urine Neg (Negative); Specific Gravity, Urine 1.015 (1.005-1.030); Sulfosalicylic Acid Urine Negative (Negative); Urine Appearance Clear (CLEAR); Urine Color Yellow (Yellow); Urobilinogen Urine Neg (Negative); pH Urine 9 (5-7)
== END 2020-01-06 17:01 | disposition home or self-care (01) ==
PROVIDERS: Emergency Provider Emergency Medicine
DX: R07.89 Other chest pain (principal); R10.9 Unspecified abdominal pain; R11.2 Nausea with vomiting, unspecified; F17.210 Nicotine dependence, cigarettes, uncomplicated
CPT/HCPCS: 12345; 36415; 71045; 74177; 80053; 81003; 83690; 84484; 85025; 93005; 96374; 96375; 96376; 99284; J1170; J1200; J2270; J2405; J2765; Q9967

== ENCOUNTER 2020-02-28 15:20 | Emergency (ER) | payer MEDICAID, SELFPAY ==
[2020-02-28] VITALS (8 sets, daily range): BP systolic 95–147; BP diastolic 64–97; PULSE 50–82; RESP 15–23; TEMP 37.1; O2SAT 94–99; BMI 22.6
[2020-02-28 21:14] LABS: Basophils % 0.2 %; Hematocrit 42.6 % (37.0-47.0); Hemoglobin 14.2 g/dL (11.5-15.3); Lymphocytes % 6.4 %; Mean Corpuscular HGB Conc 33.3 g/dL (30.0-36.0); Mean Corpuscular Hemoglobin 28.1 pg (28.0-34.0); Mean Corpuscular Volume 84.4 fL (81-99); Mean Platelet Volume 11.1 fL (7.4-10.4); Monocytes # 0.4 10^3/uL (0.2-0.9); Monocytes % 2.8 %; Neutrophils # 14.07 10^3/uL (1.8-7.7); Neutrophils % 90.1 %; Nucleated Red Blood Cells % 0 %; Platelet Count 260 10^3/cmm (130-400); Red Blood Count 5.05 10^6/uL (4.1-5.3); White Blood Count 15.6 10^3/uL (4.0-10.0)
[2020-02-28 21:27] LABS: HCG, Serum Qual Negative (Negative)
[2020-02-28 21:34] LABS: Alanine Aminotransferase 17 U/L (0-33); Albumin Level 4.7 g/dL (3.5-5.2); Alkaline Phosphatase 90 IU/L (35-105); Aspartate Amino Transferase 14 U/L (0-32); Blood Urea Nitrogen 10 mg/dL (6-20); Calcium 9.4 mg/dL (8.5-10.5); Carbon Dioxide 19 mmol/L (22-29); Globulin 2.6 g/dL (1.3-4.6); Glomerular Filtration Rate 113.1 mL/min (90-130); Glucose 163 mg/dL (65-115); Lipase 25 U/L (13-60); Total Bilirubin 0.3 mg/dL (0.15-1.2); Total Protein 7.3 g/dL (6.6-8.7)
--- NOTE | 2020-02-28 21:46 | US_ITS ---
WS: [id number] ULTRASOUND ABDOMEN LIMITED CLINICAL INFORMATION: Pain COMPARISON: None. FINDINGS: Liver Size: Normal. Craniocaudal length: 13.9 cm. Echogenicity: Normal. Surface nodularity: None. Mass (size and location): None. Bile ducts Intrahepatic ducts: Normal. Common bile duct diameter: 0.4 cm. Gallbladder Normal. Gallstones: None. Gallbladder sludge: None. Gallbladder wall thickening: None. Pericholecystic fluid: None. Sonographic Mathews sign: Absent. Pancreas Normal as visualized. Right kidney: Normal. Hydronephrosis: None. Size: 11.1 cm x 5.4 cm x 4.7 cm. Abdominal aorta and IVC Visualized portions are normal. Ascites: None. US/US gall bladder [id number] IMPRESSION: 1. Normal liver. 2. Normal gallbladder. 3. No hydronephrosis in right kidney.
--- NOTE | 2020-02-28 21:46 | ECG_ITS ---
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 Measurements Intervals [place] Rate: 58 P: 68 MO: 153 QRS: 60 QRSD: 90 T: 70 QT: 422 QTc: 417 Interpretive Statements SINUS BRADYCARDIA WITH MARKED SINUS ARRHYTHMIA Compared to ECG 01/06/2020 14:39:14 No significant changes Electronically Signed On 02-29-2020 22:20:14 ESTHETICIAN FACIALIST by Abdi Maria M.D. [id number]
[2020-02-28] MEDS: sodium chloride 0.9% 1,000 ML 999 ML IV ×2 (21:55→22:58)
[2020-02-28] MEDS: metoclopramide 5 mg/mL SDV 2 mL 10 MG IV (21:55)
[2020-02-28] MEDS: HYDROmorphone 1 mg/mL INJ 1 mL IVP (21:55)
[2020-02-28] MEDS: diphenhydrAMINE 50 mg/mL SDV 1mL 25 MG IVP ×2 (21:55→22:56)
[2020-02-28 22:00] LABS: Anion Gap 18.8 (5-19); Chloride 107 mmol/L (98-107); Osmolality Calculated 295 mOsm/kg (285-295); Potassium 3.8 mmol/L (3.5-5.1); Sodium 141 mmol/L (136-145)
[2020-02-28 22:09] LABS: Bilirubin Urine Neg (Negative); Blood Urine Neg (Negative); Glucose Urine UA Norm (Normal); Ketones Urine 1+ (Negative); Leukocyte Esterase Urine Negative (Negative); Nitrate Urine Negative (Negative); Protein Urine Neg (Negative); Urine Appearance Clear (CLEAR); Urine Color Yellow (Yellow); Urobilinogen Urine Norm (Negative); pH Urine 6.5 (5-7)
[2020-02-28 22:10] LABS: Add Urine Culture? No
--- NOTE | 2020-02-28 22:17 | ED_ITS ---
HPI - Abdominal Pain General: Chief Complaint: Abdominal Pain Stated Complaint: abd pain Time Seen by Provider: 02/28/20 21:10 Source: patient Mode of arrival: ambulatory Limitations: no limitations History of Present Illness: HPI narrative: Sanam is a very nice 34-year-old female who comes in complaining of periumbilical and epigastric abdominal pain. States that symptoms have been going on for the entire day. She states she has had the symptoms numerous times in the past secondary to cyclic vomiting syndrome. Patient states she is been worked up numerous times and no other cause can be found. She does admit to smoking marijuana regularly but does not believe that is a cause for her symptoms. Patient denies any other illicit drug use or alcohol use. Does not have any chest pain or shortness of breath. She denies any blood in her emesis. She has having some diarrhea but denies any blood or melena in that. There are no urinary symptoms such as urinary freque ncy, urgency or dysuria. She has any vaginal discharge or bleeding. Associated Symptoms: Reports nausea and vomiting; Denies chills, coffee ground emesis, constipation, GI cramping, diarrhea, dysuria, fever(s), heartburn, hematochezia, hematuria, hematemesis, melena and syncope Related Data: Date of Last Menstrual Period: 06/30/19 Review of Systems Const: Denies: fever(s), chills, body aches, fatigue, malaise or diaphoresis Eyes: Denies: change in vision, blurry vision, photophobia, eye discomfort, ey e discharge, eye redness or yellow eyes ENMT: Denies: throat pain, odynophagia, hoarseness, swelling of lips/tongue, ear or mastoid pain, ear discharge, change in hearing or nasal discharge Card: Denies: chest pain, palpitations, irregular heart rhythm, edema, lightheadedness, syncope, pre-syncope, dyspnea on exertion or orthopnea Resp: Denies: dyspnea, productive cough, non-productive cough, wheezing, hemoptysis or chest congestion GI: Reports: abdominal pain, nausea and vomiting; Denies: hematemesis, coffee ground emesis, heartburn, diarrhea, constipation, GI cramping, hematochezia or melena : Denies: flank pain, dysuria, urinary frequency, urinary urgency or hematuria Musc: Denies: neck pain, back pain, extremity pain, extremity swelling, joint pain, joint swelling, joint redness, joint warmth or joint stiffness Skin/Breast: Denies: rash, pruritus, erythema, skin pain or skin tenderness Neuro: Denies: headache(s), numbness in extremities, weakness in extremities, sensory changes, lack of coordination, difficulty walking, dizziness, vertigo, confusion, Slurred speech present or seizure-like activity Jasbir/Lymph: Denies: easy bruising, easy bleeding, petechiae, purpura or enlarged lymph nodes All/Imm: Denies: urticaria, throat swelling, tongue swelling, facial swelling or acute wheezing PFSH ED PFSH: Medical History (Updated 02/28/20 @ 23:46 by Mignon Orellana) Anxiety Bipolar 1 disorder Depression Gastroesophageal reflux disease Peptic ulcer disease Social History Smoking and tobacco status: current every day smoker Female Reproductive History: Date of last menstrual period: 06/30/19 Physical Exam Const: COMMON NORMALS: no acute distress, patient oriented x3, no limitations and alert GENERAL APPEARANCE: cooperative HENMT: COMMON NORMALS: normocephalic, atraumatic, external ears normal, EAC's normal and Normal external nose present HEAD & SCALP: normal to inspection, normocephalic and atraumatic FACE & SINUS: normal facial exam and face symmetric NOSE: Normal external nose present and Normal nares present EXTERNAL EAR: Yes external ears normal EXTERNAL AUDITORY CANAL: EAC's normal MOUTH: Normal oral and palatal mucosa present, lip normal and tongue normal Eye: COMMON NORMALS: Equal, round and reactive pupils present and conjunctivae normal GENERAL EYE: appearance normal, both eyes and all related structures ALIGNMENT: Yes alignment normal PERIORBITAL: periorbital findings normal EYELID: eyelids normal CONJUNCTIVA: Yes conjunctivae normal SCLERA: sclerae normal PUPIL: Yes Equal, round and reactive pupils present Neck/C-Spine: COMMON NORMALS: full ROM, no lymphadenopathy, supple, no meningeal signs and no JVD GENERAL: Yes normal visual inspection and Yes trachea midline Chest: COMMONS NORMALS: normal inspection of the chest and normal palpation of entire chest wall Resp: COMMON NORMALS: normal respiratory effort, No retractions, No use of accessory muscles and clear to auscultation bilaterally EFFORT & INSPECTION: Yes able to speak in complete sentences and Yes symmetric chest movement AUSCULTATION: clear to auscultation bilaterally, no crackles, no rales, no rhonc hi and no wheezes Cardio: COMMON NORMALS: no JVD, regular rate, regular rhythm, S1 normal heart sound present and S2 normal heart sound present RATE: regular rate RHYTHM: regular rhythm HEART SOUNDS: S1 normal heart sound present, S2 normal heart sound present, no click, no gallops, no murmurs and no rubs GI: COMMON NORMALS: Soft to palpation and No hepatosplenomegaly present PALPATION: Yes Soft to palpation, Yes Tenderness to palpation present (GI) (Mild in epigastric and periumbilical abdominal areas. No rebound or guardi), No Guarding due to palpation present (GI), No Rigid due to palpation, Yes No hepatosplenomegaly present, No Hernia present, No Palpable mass present and No Pulsatile mass present : COMMON NORMALS: Yes no CVA tenderness BLADDER/KIDNEY EXAM: Yes no CVA tenderness EXTERNAL FEMALE EXAM: No Hernia present Back/Pelvis: COMMON NORMALS: no CVA tenderness, thoracic and lumbar spine normal to inspection, no thoracic nor lumbar tenderness and thoraco-lumbar ROM normal Extremity: COMMON NORMALS: normal to inspection, full ROM, capillary refill normal, no joint enlargement, no clubbing, cyanosis or edema and no calf tenderness Neuro: COMMON NORMALS: patient oriented x3, CN's II-XII intact bilaterally, moves all extremities, no focal motor deficits and no sensory deficits noted SENSORIUM/ORIENTATION: Yes alert MENINGEAL SIGNS: Yes no meningeal signs SPEECH: speech normal Psych: COMMON NORMALS: mental status grossly normal, Normal thought process present, cooperative, normal affect, speech normal and activity/motor behavior normal SPEECH: Yes normal speech THOUGHT PROCESS: Normal thought process present Skin: COMMON NORMALS: no rashes or lesions noted, turgor normal, no jaundice, no petechiae and no mottling GENERAL SKIN EXAM: no rashes or lesions noted and turgor normal Course Vital Signs: Vital signs: Vital Signs Temperature 98.8 F 02/28/20 15:35 Pulse Rate 70 02/29/20 00:05 Respiratory Rate 17 02/29/20 00:05 Blood Pressure 118/67 02/29/20 00:05 Pulse Oximetry 95 02/29/20 00:05 MDM - Abdominal Pain MDM Narrative: Medical decision making narrative: 2348 -Sanam is feeling much better at this time. She no longer feels nauseated or has any abdominal pain. CT scan is unremarkable as well as her ultrasound. Her labs do show a leukocytosis but I believe this is likely a stress reaction. On repeat exam the patient has no sign of peritonitis. This is a recurrent problem for her. I see no evidence of acute appendicitis, diverticulitis, bowel obstruction, cholecystitis or otherwise. Differential for abdominal pain is extensive including the findings listed previously. She wants to follow-up with an outpatient doctor to get a handle on this problem. I will recommend she follow- up with Dr. Perez. Patient agrees to do this. She also agrees to return should her symptoms change or worsen. Differential Diagnosis: Differential diagnosis abdominal pain: Likely abdominal pain, acute appendicitis, calculus of kidney, constipation, diverticulitis, endometriosis, gastroenteritis, pancreatitis and small bowel obstruction Medical Records: Attestation: I reviewed the patient's medical records. Lab Data: Attestation: I reviewed the patient's lab results. Labs: Lab Results 02/28/20 02/28/20 02/28/20 Range/Units 21:04 21:04 21:04 WBC 15.6 H (4.0-10.0) 10^3/ uL RBC 5.05 (4.1-5.3) 10^6/u L Hgb 14.2 (11.5-15.3) g/dL Hct 42.6 (37.0-47.0) % MCV 84.4 (81-99) fL MCH 28.1 (28.0-34.0) pg MCHC 33.3 (30.0-36.0) g/dL RDW 15.0 (12.1-15.1) % Plt Count 260 (130-400) 10^3/c mm MPV 11.1 H (7.4-10.4) fL Neut % (Auto) 90.1 % Lymph % (Auto) 6.4 % [place] % (Auto) 2.8 % Eos % (Auto) 0.0 % Baso % (Auto) 0.2 % Neut # (Auto) 14.07 H (1.8-7.7) 10^3/u L Lymph # (Auto) 1.0 (0.8-4.8) 10^3/u L [place] # (Auto) 0.4 (0.2-0.9) 10^3/u L Eos # (Auto) 0.0 (0.0-0.8) 10^3/u L Baso # (Auto) 0.0 (0.0-0.1) 10^3/u L Nucleated RBC % (a uto) 0 % Nucleated RBCs # 0.0 /100WBC Sodium 141 (136-145) mmol/L Potassium 3.8 (3.5-5.1) mmol/L Chloride 107 (98-107) mmol/L Carbon Dioxide 19 L (22-29) mmol/L Anion Gap 18.8 (5-19) BUN 10 (6-20) mg/dL Creatinine 0.6 (0.5-0.9) mg/dL GFR Calculation 113.1 (90-130) mL/min Glucose 163 H (65-115) mg/dL Calculated Osmolal ity 295 (285-295) mOsm/k g Calcium 9.4 (8.5-10.5) mg/dL Total Bilirubin 0.3 (0.15-1.2) mg/dL AST 14 (0-32) U/L ALT 17 (0-33) U/L Alkaline Phosphata se 90 (35-105) IU/L Total Protein 7.3 (6.6-8.7) g/dL Albumin 4.7 (3.5-5.2) g/dL Globulin 2.6 (1.3-4.6) g/dL Lipase 25 (13-60) U/L HCG, Qual Negative (Negative) Urine Color (Yellow) Urine Appearance (CLEAR) Urine pH (5-7) Ur Specific Gravit y (1.005-1.030) Urine Protein (Negative) Urine Glucose (UA) (Normal) Urine Ketones (Negative) Urine Blood (Negative) Urine Nitrate (Negative) Urine Bilirubin (Negative) Urine Urobilinogen (Negative) mg/dL Ur Leukocyte Gina ase (Negative) Urine RBC (0-2) /hpf Urine WBC (0-5) /hpf Ur Squamous Epith Cells (0-5) /hpf Amorphous Sediment Urine Bacteria (NONE) /hpf 11/30/20 Range/Units 21:49 WBC (4.0-10.0) 10^3/ uL RBC (4.1-5.3) 10^6/u L Hgb (11.5-15.3) g/dL Hct (37.0-47.0) % MCV (81-99) fL MCH (28.0-34.0) pg MCHC (30.0-36.0) g/dL RDW (12.1-15.1) % Plt Count (130-400) 10^3/c mm MPV (7.4-10.4) fL Neut % (Auto) % Lymph % (Auto) % [place] % (Auto) % Eos % (Auto) % Baso % (Auto) % Neut # (Auto) (1.8-7.7) 10^3/u L Lymph # (Auto) (0.8-4.8) 10^3/u L [place] # (Auto) (0.2-0.9) 10^3/u L Eos # (Auto) (0.0-0.8) 10^3/u L Baso # (Auto) (0.0-0.1) 10^3/u L Nucleated RBC % (a uto) % Nucleated RBCs # /100WBC Sodium (136-145) mmol/L Potassium (3.5-5.1) mmol/L Chloride (98-107) mmol/L Carbon Dioxide (22-29) mmol/L Anion Gap (5-19) BUN (6-20) mg/dL Creatinine (0.5-0.9) mg/dL GFR Calculation (90-130) mL/min Glucose (65-115) mg/dL Calculated Osmolal ity (285-295) mOsm/k g Calcium (8.5-10.5) mg/dL Total Bilirubin (0.15-1.2) mg/dL AST (0-32) U/L ALT (0-33) U/L Alkaline Phosphata se (35-105) IU/L Total Protein (6.6-8.7) g/dL Albumin (3.5-5.2) g/dL Globulin (1.3-4.6) g/dL Lipase (13-60) U/L HCG, Qual (Negative) Urine Color Yellow (Yellow) Urine Appearance Clear (CLEAR) Urine pH 6.5 (5-7) Ur Specific Gravit y 1.010 (1.005-1.030) Urine Protein Neg (Negative) Urine Glucose (UA) Norm (Normal) Urine Ketones 1+ H (Negative) Urine Blood Neg (Negative) Urine Nitrate Negative (Negative) Urine Bilirubin Neg (Negative) Urine Urobilinogen Norm (Negative) mg/dL Ur Leukocyte Gina ase Negative (Negative) Urine RBC None (0-2) /hpf Urine WBC None (0-5) /hpf Ur Squamous Epith Cells None (0-5) /hpf Amorphous Sediment Not Reportable Urine Bacteria None (NONE) /hpf Imaging Data ^: US: My impression: Ultrasound gallbladder, tech interpretation -no acute abnormal findings. No gallstones or sludge. No wall thickening. No pericholecystic fluid. Normal common bile duct. CT Abd/Pel: Radiologist's impression: [employer] [address] [address] [address] Scan Report Signed Patient: Sanam Prieto Unit #: [id number] : [id number] Age/Sex: 34 / F ADM Date: 01/31 Loc: ER Room/Bed: Attending Dr: Ordering Provider/Ordering MD: Mignon Orellana DO Date of Service: 02/28/20 Procedure(s): CT abdomen pelvis w con* [id number] Accession Number(s): [id number] Report Number: [id number] PROCEDURE INFORMATION: Exam: CT Abdomen And Pelvis With Contrast Exam date and time: 02/28/2020 10:54 PM Age: 34 years old Clinical indication: Abdominal pain; Generalized TECHNIQUE: Imaging protocol: Computed tomography of the abdomen and pelvis with intravenous contrast. Radiation optimization: All CT scans at this facility use at least one of these dose optimization techniques: automated exposure control; mA and/or kV adjustment per patient size (includes targeted exams where dose is matched to clinical indication); or iterative reconstruction. Contrast material: OMNI 300; Contrast volume: 95 ml; Contrast route: INTRAVENOUS (IV); COMPARISON: CT abdomen pelvis w con* [id number] 01/06/2020 3:[address] from 10/24/2017 RADIATION DOSE METRICS: Total DLP (mGy-cm): 848.02 FINDINGS: Liver: In hepatic segment 7 there is a chronic 1.1 cm hypodensity unchanged since 2018 and should be incidental. Gallbladder and bile ducts: Normal. No calcified stones. No ductal dilation. Pancreas: Normal. No ductal dilation. Spleen: Normal. No splenomegaly. Adrenal glands: Normal. No mass. Kidneys and ureters: Normal. No hydronephrosis. Stomach and bowel: Unremarkable. No obstruction. No mucosal thickening. Appendix: No evidence of appendicitis. Intraperitoneal space: Trace pelvic free fluid. Vasculature: Unremarkable. No abdominal aortic aneurysm. Lymph nodes: Unremarkable. No enlarged lymph nodes. Urinary bladder: Unremarkable as visualized. Reproductive: Dominant follicle in the left ovary. Bones/joints: Unremarkable. No acute fracture. Soft tissues: Small umbilical hernia consist of fatty tissue only. CT/CT abdomen pelvis w con* [id number] IMPRESSION: 1. No acute abdominopelvic findings. 2. Trace pelvic free fluid is most likely from a recently ruptured follicle. 3. Other incidental findings as described. Radiation Dose CTDIVOL = (mGy): DLP = 848.02 (mGy-cm) Dictated By: Lu Tobias MD Signed By: Lu Tobias MD Signed Date/Time: 02/28/202333 DD/ 31 EKG Data ^: EKG 1: Attestation: I personally reviewed and interpreted this EKG as follows: EKG interpretation date: 02/28/20 EKG interpretation time: 21:58 Interpretation: Normal sinus rhythm at 58 beats a minute, no blocks, normal intervals, no acute ST or T wave changes. Discharge Plan Discharge Patient Disposition: Home Clinical Impression: Cyclic vomiting syndrome Condition: Stable Prescriptions: New Reglan 10 mg tablet 10 mg PO Q6H PRN (Reason: nausea and vomiting) Qty: 10 RF: 0 No Action ondansetron 8 mg tablet,disintegrating 8 mg PO Q12H PRN (Reason: Nausea) RF: 0 amitriptyline 10 mg tablet 10 mg PO BEDTIME RF: 0 pregabalin [Lyrica] 100 mg Capsule 100 mg PO DAILY RF: 0 tramadol 50 mg tablet 50 - 100 mg PO Q6H PRN (Reason: pain) RF: 0 albuterol sulfate 2.5 mg /3 mL (0.083 %) solution for nebulization 2.5 mg inhalation Q6H PRN (Reason: Shortness Of Breath) RF: 0 Ativan 1 mg tablet 1 mg PO Q6H PRN (Reason: Anxiety) RF: 0 Discharge Orders: Discharge Order (Routine); Ordered 02/28/20 Ordered By: Mignon Orellana Referrals: Ariel Perez MD [Physician] - 1-3 days Patient Instructions: Acute Nausea and Vomiting (ED), Abdominal Pain (ED) Activity Restrictions/Additional Instructions: Please return to the ER immediately for any of the signs or symptoms listed on your discharge instruction sheets, worsening/changing of your symptoms, you are not getting better as quickly as expected, or for ANY other cause or concerns. Coding Level of Care Code ED [employer] for Chg 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
--- NOTE | 2020-02-28 22:42 | CTR_ITS ---
PROCEDURE INFORMATION: Exam: CT Abdomen And Pelvis With Contrast Exam date and time: 02/28/2020 10:54 PM Age: 34 years old Clinical indication: Abdominal pain; Generalized TECHNIQUE: Imaging protocol: Computed tomography of the abdomen and pelvis with intravenous contrast. Radiation optimization: All CT scans at this facility use at least one of these dose optimization techniques: automated exposure control; mA and/or kV adjustment per patient size (includes targeted exams where dose is matched to clinical indication); or iterative reconstruction. Contrast material: OMNI 300; Contrast volume: 95 ml; Contrast route: INTRAVENOUS (IV); COMPARISON: CT abdomen pelvis w con* [id number] 01/06/2020 3:[address] from 10/24/2017 RADIATION DOSE METRICS: Total DLP (mGy-cm): 848.02 FINDINGS: Liver: In hepatic segment 7 there is a chronic 1.1 cm hypodensity unchanged since 2018 and should be incidental. Gallbladder and bile ducts: Normal. No calcified stones. No ductal dilation. Pancreas: Normal. No ductal dilation. Spleen: Normal. No splenomegaly. Adrenal glands: Normal. No mass. Kidneys and ureters: Normal. No hydronephrosis. Stomach and bowel: Unremarkable. No obstruction. No mucosal thickening. Appendix: No evidence of appendicitis. Intraperitoneal space: Trace pelvic free fluid. Vasculature: Unremarkable. No abdominal aortic aneurysm. Lymph nodes: Unremarkable. No enlarged lymph nodes. Urinary bladder: Unremarkable as visualized. Reproductive: Dominant follicle in the left ovary. Bones/joints: Unremarkable. No acute fracture. Soft tissues: Small umbilical hernia consist of fatty tissue only. CT/CT abdomen pelvis w con* [id number] IMPRESSION: 1. No acute abdominopelvic findings. 2. Trace pelvic free fluid is most likely from a recently ruptured follicle. 3. Other incidental findings as described. Radiation Dose CTDIVOL = (mGy): DLP = 848.02 (mGy-cm)
[2020-02-28] MEDS: lidocaine 2% viscous 15 ML, aluminum-mag hydrox-simethicon 30 ML, sucralfate oral liq 1 GM PO (22:56)
[2020-02-28] MEDS: haloperidol inj 5 mg/mL INJ 1 mL 2.5 MG IM (22:56)
[2020-02-28] MEDS: iohexol 300 mg/mL 100 mL Btl IV (23:19)
[2020-02-29 00:05] VITALS: BP 118/67; PULSE 70; RESP 17; O2SAT 95
== END 2020-02-29 00:19 | disposition home or self-care (01) ==
PROVIDERS: Emergency Provider Emergency Medicine
DX: R11.15 Cyclical vomiting syndrome unrelated to migraine (principal); F17.210 Nicotine dependence, cigarettes, uncomplicated
CPT/HCPCS: 12345; 74177; 76705; 80053; 81001; 83690; 84703; 85025; 93005; 96361; 96372; 96374; 96375; 96376; 99283; 99284; J1170; J1200; J1630; J2765; J7030; Q9967

== ENCOUNTER 2020-06-05 17:17 | Emergency (ER) | payer MEDICAID, SELFPAY ==
[2020-06-05 17:44] VITALS: BP 93/64; PULSE 88; RESP 14; TEMP 36.5; O2SAT 97; BMI 29.7
--- NOTE | 2020-06-05 18:20 | ED_ITS ---
HPI - Extremity Problem General: Chief complaint: Extremity Injury, Lower Stated complaint: L KNEE/HIP INJURY Time Seen by Provider: 06/05/20 18:06 History of Present Illness: HPI Narrative: Patient complains with left hip pain after a fall on Friday. Patient was taken to the ER for sutures to a cut on her left knee and for left hip pain. Patient states x-rays were negative. The put her knee immobilizer and give her crutches. Said that Tylenol and rest well to get better. [place]. She said she went down and her leg went underneath her. Her hips hurt since then. Complaint: joint pain Onset (ago): day(s) Pain Consistency: constant Location: left and lower extremity Severity scale (1-10): 5 Quality: aching Radiation: distal Relieving factors: immobilization Exacerbating factors: range of motion and weight bearing Associated symptoms: Reports no associated symptoms; Deny chest pain, fever(s) or rash Review of Systems Const: Denies: fever(s), chills or body aches Eyes: Denies: change in vision or blurry vision ENMT: Denies: throat pain or nasal congestion Card: Denies: chest pain or dyspnea on exertion Resp: Denies: dyspnea, productive cough or non-productive cough GI: Denies: abdominal pain, nausea or vomiting Musc: Reports: joint pain (Left hip); Denies: extremity pain Skin/Breast: Denies: rash Neuro: Denies: headache(s) Psych: Denies: anxiety or depression Jasbir/Lymph: Denies: easy bruising PFSH ED PFSH: Medical History Anxiety Bipolar 1 disorder Depression Gastroesophageal reflux disease Peptic ulcer disease Social History Smoking and tobacco status: current every day smoker Female Reproductive History: Date of last menstrual period: 06/30/19 Physical Exam Const: COMMON NORMALS: no acute distress, average body habitus and patient oriented x3 HENMT: COMMON NORMALS: normocephalic HEAD & SCALP: normal to inspection and normocephalic FACE & SINUS: normal facial exam Eye: COMMON NORMALS: conjunctivae normal GENERAL EYE: appearance normal, both eyes and all related structures CONJUNCTIVA: Yes conjunctivae normal Neck/C-Spine: COMMON NORMALS: no JVD Chest: COMMONS NORMALS: normal inspection of the chest Resp: COMMON NORMALS: normal respiratory effort and clear to auscultation bilaterally AUSCULTATION: clear to auscultation bilaterally Cardio: COMMON NORMALS: no JVD, regular rate and regular rhythm RATE: regular rate RHYTHM: regular rhythm GI: COMMON NORMALS: Normal to inspection, nondistended, normoactive bowel sounds present Extremity: COMMON NORMALS: normal to inspection LEFT LOWER EXTREMITY: Yes hip joint (Significant tenderness with palpation of the left hip area) OTHER: Patient has [place] wrap in place to protect the sutures on left knee no redness swelling noted to that area distal neurovascular intact pulses intact. Neuro: COMMON NORMALS: patient oriented x3 Course Vital Signs: Vital signs: Vital Signs Temperature 97.7 F 06/05/20 17:44 Pulse Rate 88 06/05/20 17:44 Respiratory Rate 14 06/05/20 17:44 Blood Pressure 93/64 06/05/20 17:44 Pulse Oximetry 97 06/05/20 17:44 Discharge Plan Discharge Condition: Good Prescriptions: No Action ondansetron 8 mg tablet,disintegrating 8 mg PO Q12H PRN (Reason: Nausea) RF: 0 amitriptyline 10 mg tablet 10 mg PO BEDTIME RF: 0 pregabalin [Lyrica] 100 mg Capsule 100 mg PO DAILY RF: 0 tramadol 50 mg tablet 50 - 100 mg PO Q6H PRN (Reason: pain) RF: 0 albuterol sulfate 2.5 mg /3 mL (0.083 %) solution for nebulization 2.5 mg inhalation Q6H PRN (Reason: Shortness Of Breath) RF: 0 Ativan 1 mg tablet 1 mg PO Q6H PRN (Reason: Anxiety) RF: 0 Reglan 10 mg tablet 10 mg PO Q6H PRN (Reason: nausea and vomiting) Qty: 10 RF: 0 Coding Level of Care Code ED [employer] for Chg Awilda
--- NOTE | 2020-06-05 18:20 | CTR_ITS ---
PROCEDURE INFORMATION: Exam: CT Left Lower Extremity Without Contrast, Hip Exam date and time: 06/05/2020 6:22 PM Age: 34 years old Clinical indication: Injury or trauma; Fall; Blunt trauma; Hip; Left; Additional info: Pain, fall, xrays negative at [facility] TECHNIQUE: Imaging protocol: CT of the Left lower extremity without contrast was performed. Exam focused on the hip. Radiation optimization: All CT scans at this facility use at least one of these dose optimization techniques: automated exposure control; mA and/or kV adjustment per patient size (includes targeted exams where dose is matched to clinical indication); or iterative reconstruction. COMPARISON: CT abdomen pelvis w con* [id number] 02/28/2020 11:09 PM RADIATION DOSE METRICS: Total DLP (mGy-cm): 1579.1 FINDINGS: Bones/joints: No acute fracture or dislocation. Soft tissues: Normal noncontrast appearance. CT/CT hip LT wo con* [id number] IMPRESSION: No acute displaced fracture or dislocation. Radiation Dose CTDIVOL = (mGy): DLP = 1579.1 (mGy-cm)
[2020-06-05 18:46] VITALS: BP 101/65; PULSE 71; RESP 16; O2SAT 94
== END 2020-06-05 19:07 | disposition home or self-care (01) ==
PROVIDERS: Emergency Provider Nurse Practitioner Family
DX: M25.552 Pain in left hip (principal); S89.92XA Unspecified injury of left lower leg, initial encounter; W19.XXXA Unspecified fall, initial encounter; Y92.828 Other wilderness area as the place of occurrence of the external cause; F17.210 Nicotine dependence, cigarettes, uncomplicated
CPT/HCPCS: 73700; 99282

== ENCOUNTER 2020-06-23 15:17 | Emergency (ER) | payer MEDICAID, SELFPAY ==
[2020-06-23 15:17] VITALS: BP 138/89; PULSE 58; RESP 24; TEMP 36.6; O2SAT 96; BMI 28.1
--- NOTE | 2020-06-23 15:21 | ED_ITS ---
HPI - Nausea/Vomiting/Diarrhea General: Chief complaint: Abdominal Pain Stated complaint: NAUSEA/ VOMITING Time Seen by Provider: 06/23/20 15:18 History of Present Illness: HPI Narrative: Patient is a 34-year-old female who comes to the ED via EMS with nausea vomiting and generalized abdominal pain. Patient says symptoms started this morning. Patient states she has fibromyalgia and she forgot to take her meds yesterday. She states that when she forgets to take her meds she has these kind of flareups. Patient also states she has a history of pancreatitis. Her abdominal pain is generalized and she rates it a Patient's 10 out of 10. She has been seen here over the last year multiple times for same complaint and diagnosed with cyclic vomiting syndrome. She has had multiple episodes of emesis today and is still currently nauseous. EMS gave patient fentanyl for pain and Zofran for nausea and she reports that it did not help much. Denies fever, chills, diarrhea, constipation, dysuria or hematuria. Patient does admit to chronic marijuana use and says that some of her symptoms did improve when she had a hot shower. Associated nausea: Yes Associated symtoms: Reports nausea; Denies change in vision, chest pain, dysuria, fatigue, headache(s) or palpitations Review of Systems Const: Reports: other (Generalized body pain throughout torso.); Denies: fever(s), chills or fatigue Eyes: Denies: change in vision or eye discomfort ENMT: Denies: throat pain, odynophagia, nasal discharge or nasal congestion Card: Denies: chest pain, palpitations, edema, swelling of feet/ankles, dyspnea on exertion or orthopnea Resp: Denies: dyspnea, productive cough or non-productive cough GI: Reports: abdominal pain, nausea and vomiting; Denies: diarrhea, constipation or hematochezia : Denies: flank pain, dysuria or hematuria Musc: Denies: neck pain, back pain or extremity swelling Skin/Breast: Denies: rash or new lesions Neuro: Denies: headache(s), numbness in extremities or weakness in extremities PFS ED PFSH: Medical History Anxiety Bipolar 1 disorder Depression Gastroesophageal reflux disease Peptic ulcer disease Social History Smoking and tobacco status: current every day smoker Female Reproductive History: Date of last menstrual period: 06/30/19 Physical Exam Const: COMMON NORMALS: patient oriented x3 and alert GENERAL APPEARANCE: cooperative and in distress (Patient is currently being in pain.) HENMT: COMMON NORMALS: normocephalic HEAD & SCALP: normocephalic MOUTH: Normal oral and palatal mucosa present THROAT: posterior oropharynx normal and uvula midline Eye: COMMON NORMALS: Equal, round and reactive pupils present PUPIL: Yes Equal, round and reactive pupils present Neck/C-Spine: COMMON NORMALS: supple GENERAL: Yes normal visual inspection Resp: COMMON NORMALS: normal respiratory effort, No retractions, No use of accessory muscles and clear to auscultation bilaterally AUSCULTATION: clear to auscultation bilaterally Cardio: COMMON NORMALS: regular rate, regular rhythm, S1 normal heart sound present, S2 normal heart sound present, No gallops present (Cardio), No clicks present (Cardio), No murmurs present (Cardio) and Peripheral pulses 2+ throughout RATE: regular rate RHYTHM: regular rhythm HEART SOUNDS: S1 normal heart sound present and S2 normal heart sound present PERIPHERAL PULSES: Peripheral pulses 2+ throughout GI: COMMON NORMALS: Normal to inspection, nondistended, normoactive bowel sounds present, Soft to palpation and no masses PALPATION: Yes Soft to palpation and Yes Tenderness to palpation present (GI) : COMMON NORMALS: Yes no CVA tenderness BLADDER/KIDNEY EXAM: Yes no CVA tenderness Back/Pelvis: COMMON NORMALS: no CVA tenderness Extremity: COMMON NORMALS: normal to inspection Neuro: COMMON NORMALS: patient oriented x3 and moves all extremities SENSORIUM/ORIENTATION: Yes alert Skin: GENERAL SKIN EXAM: dry skin Course Reevaluation(s): Reevaluation #1: Patient says that her symptoms have improved and she is feeling a lot better. She is now sitting comfortably in the bed having a little bit of nausea but no recent emesis. Time: 18:32 Vital Signs: Vital signs: Vital Signs Temperature 97.9 F 06/23/20 15:17 Pulse Rate 76 06/23/20 18:28 Respiratory Rate 14 06/23/20 19:07 Blood Pressure 106/59 06/23/20 18:28 Pulse Oximetry 94 06/23/20 18:28 MDM - Nausea/Vomiting/Diarrhea MDM Narrative: Medical decision making narrative: Patient is a 34-year-old female comes to the ED with generalized pain nausea and vomiting. Patient says she woke up with nausea and vomiting and has had many episodes of emesis since she woke up. Patient has a history of cyclic vomiting and does admit to chronic marijuana use. Denies any fever, chills, chest pain, bladder or bowel symptoms. White blood cell count 18.9 rest of CBC CMP and UA were unremarkable. hCG negative CT of abdomen showed no acute findings. Patient was given IV fluids, morphine, Zofran and Ativan while here in the ED and her symptoms improved. Patient diagnosed with cyclic vomiting syndrome and discharged home. Patient already has a prescription for Zofran I told her to take that as needed for any nausea. Return to ED precautions given. Follow-up with PCP in 7 to 10 days for reevaluation. Patient understood agree with plan. Lab Data: Attestation: I reviewed the patient's lab results. Labs: Lab Results 06/23/20 06/23/20 06/23/20 Range/Units 15:40 15:40 15:40 WBC 18.9 H (4.0-10.0) 10^3/ uL RBC 5.21 (4.1-5.3) 10^6/u L Hgb 14.8 (11.5-15.3) g/dL Hct 43.7 (37.0-47.0) % MCV 83.9 (81-99) fL MCH 28.4 (28.0-34.0) pg MCHC 33.9 (30.0-36.0) g/dL RDW 14.2 (12.1-15.1) % Plt Count 316 (130-400) 10^3/c mm MPV 12.1 H (7.4-10.4) fL Neut % (Auto) 86.5 % Lymph % (Auto) 7.3 % Mclennan % (Auto) 5.1 % Eos % (Auto) 0.1 % Baso % (Auto) 0.3 % Neut # (Auto) 16.37 H (1.8-7.7) 10^3/u L Lymph # (Auto) 1.4 (0.8-4.8) 10^3/u L Mclennan # (Auto) 1.0 H (0.2-0.9) 10^3/u L Eos # (Auto) 0.0 (0.0-0.8) 10^3/u L Baso # (Auto) 0.1 (0.0-0.1) 10^3/u L Nucleated RBC % (a uto) 0 % Nucleated RBCs # 0.0 /100WBC Sodium 137 (136-145) mmol/L Potassium 4.0 (3.5-5.1) mmol/L Chloride 102 (98-107) mmol/L Carbon Dioxide 19 L (22-29) mmol/L Anion Gap 20.0 H (5-19) BUN 13 (6-20) mg/dL Creatinine 0.5 (0.5-0.9) mg/dL GFR Calculation 139.6 H (90-130) mL/min Glucose 133 H (65-115) mg/dL Calculated Osmolal ity 286 (285-295) mOsm/k g Calcium 9.5 (8.5-10.5) mg/dL Total Bilirubin 0.5 (0.15-1.2) mg/dL AST 15 (0-32) U/L ALT 17 (0-33) U/L Alkaline Phosphata se 99 (35-105) IU/L Total Protein 7.5 (6.6-8.7) g/dL Albumin 4.5 (3.5-5.2) g/dL Globulin 3.0 (1.3-4.6) g/dL Lipase 36 (13-60) U/L HCG, Qual Negative (Negative) Urine Color (Yellow) Urine Appearance (CLEAR) Urine pH (5-7) Ur Specific Gravit y (1.005-1.030) Urine Protein (Negative) Urine Glucose (UA) (Normal) Urine Ketones (Negative) Urine Blood (Negative) Urine Nitrate (Negative) Urine Bilirubin (Negative) Prot Sulfosalicyli c Acd (Negative) Urine Urobilinogen (Negative) mg/dL Ur Leukocyte Gina ase (Negative) Urine RBC (0-2) /hpf Urine WBC (0-5) /hpf Ur Squamous Epith Cells (0-5) /hpf Amorphous Sediment Urine Bacteria (NONE) /hpf Urine Mucus /hpf 06/23/ Range/Units 17:30 WBC (4.0-10.0) 10^3/ uL RBC (4.1-5.3) 10^6/u L Hgb (11.5-15.3) g/dL Hct (37.0-47.0) % MCV (81-99) fL MCH (28.0-34.0) pg MCHC (30.0-36.0) g/dL RDW (12.1-15.1) % Plt Count (130-400) 10^3/c mm MPV (7.4-10.4) fL Neut % (Auto) % Lymph % (Auto) % Mclennan % (Auto) % Eos % (Auto) % Baso % (Auto) % Neut # (Auto) (1.8-7.7) 10^3/u L Lymph # (Auto) (0.8-4.8) 10^3/u L Mclennan # (Auto) (0.2-0.9) 10^3/u L Eos # (Auto) (0.0-0.8) 10^3/u L Baso # (Auto) (0.0-0.1) 10^3/u L Nucleated RBC % (a uto) % Nucleated RBCs # /100WBC Sodium (136-145) mmol/L Potassium (3.5-5.1) mmol/L Chloride (98-107) mmol/L Carbon Dioxide (22-29) mmol/L Anion Gap (5-19) BUN (6-20) mg/dL Creatinine (0.5-0.9) mg/dL GFR Calculation (90-130) mL/min Glucose (65-115) mg/dL Calculated Osmolal ity (285-295) mOsm/k g Calcium (8.5-10.5) mg/dL Total Bilirubin (0.15-1.2) mg/dL AST (0-32) U/L ALT (0-33) U/L Alkaline Phosphata se (35-105) IU/L Total Protein (6.6-8.7) g/dL Albumin (3.5-5.2) g/dL Globulin (1.3-4.6) g/dL Lipase (13-60) U/L HCG, Qual (Negative) Urine Color Yellow (Yellow) Urine Appearance Clear (CLEAR) Urine pH 8 H (5-7) Ur Specific Gravit y 1.010 (1.005-1.030) Urine Protein Neg (Negative) Urine Glucose (UA) Norm (Normal) Urine Ketones 3+ H (Negative) Urine Blood Neg (Negative) Urine Nitrate Negative (Negative) Urine Bilirubin Neg (Negative) Prot Sulfosalicyli c Acd Negative (Negative) Urine Urobilinogen 1 H (Negative) mg/dL Ur Leukocyte Gina ase Negative (Negative) Urine RBC 0-4 H (0-2) /hpf Urine WBC 0-4 H (0-5) /hpf Ur Squamous Epith Cells 25-40 H (0-5) /hpf Amorphous Sediment Not Reportable Urine Bacteria Tr (NONE) /hpf Urine Mucus 4+ /hpf Imaging Data^: CT Abd/Pel: Attestation: I personally reviewed and interpreted this imaging study as follows: Radiologist's impression: [facility] [address] [address] Scan Report Signed Patient: Sanam Prieto Unit #: [id number] : 1985 Age/Sex: 34 / F ADM Date: 06/23/20 Loc: ER Room/Bed: Attending Dr: Ordering Provider/Ordering MD: Jeremias Burger Date of Service: 06/23/20 Procedure(s): CT abdomen pelvis w con* [id number] Accession Number(s): [id number] Report Number: [id number] PROCEDURE INFORMATION: Exam: CT Abdomen And Pelvis With Contrast Exam date and time: 06/23/2020 3:58 PM Age: 34 years old Clinical indication: Nausea and vomiting; Patient HX: C/O n/v and abd pain; Additional info: N/v and generalized abdominal pain TECHNIQUE: Imaging protocol: Computed tomography of the abdomen and pelvis with contrast. Radiation optimization: All CT scans at this facility use at least one of these dose optimization techniques: automated exposure control; mA and/or kV adjustment per patient size (includes targeted exams where dose is matched to clinical indication); or iterative reconstruction. Contrast material: OMNI 300; Contrast volume: 95 ml; Contrast route: INTRAVENOUS (IV); COMPARISON: CT abdomen pelvis w con* [id number] 02/28/2020 11:09 PM RADIATION DOSE METRICS: Total DLP (mGy-cm): 1720.62 FINDINGS: Lungs: The visualized lung bases are clear. Mediastinal space: Small hiatal hernia. Liver: 1 cm hypodensity in the posterior hepatic dome is most likely a benign cyst or hemangioma. Focal fatty infiltration along the falciform ligament. Liver is otherwise normal in appearance. Gallbladder and bile ducts: No intrahepatic or extrahepatic biliary dilitation. No calcified stones. Pancreas: No evidence of mass. No ductal dilation. Spleen: No splenomegaly or mass. Adrenal glands: Normal. Kidneys and ureters: No stones or hydronephrosis. No evidence of focal mass. Stomach and bowel: No evidence of obstruction. No focal bowel wall thickening or mass. No significant diverticula. Appendix: No evidence of appendicitis. Intraperitoneal space: No free air. No free fluid or evidence of abscess. Vasculature: No concerning abnormalities. Lymph nodes: No lymphadenopathy. Urinary bladder: Normal CT appearance. Reproductive: Normal CT appearance for age. Bones/joints: No acute abnormality. Soft tissues: Within normal limits. CT/CT abdomen pelvis w con* [id number] IMPRESSION: 1. Small hiatal hernia. 2. Otherwise no concerning findings. Radiation Dose CTDIVOL = (mGy): DLP = 1720.62 (mGy-cm) Dictated By: Urbano Cole Signed By: Urbano Cole Signed Date/Time: 06/23/201807 DD/ 05 Discharge Plan Discharge Patient Disposition: Home Clinical Impression: Cyclic vomiting syndrome Condition: Stable Prescriptions: No Action ondansetron 8 mg tablet,disintegrating 8 mg PO Q12H PRN (Reason: Nausea) RF: 0 amitriptyline 10 mg tablet 10 mg PO BEDTIME@2200 RF: 0 pregabalin [Lyrica] 100 mg Capsule 200 mg PO DAILY@2200 RF: 0 tramadol 50 mg tablet 50 - 100 mg PO Q6H PRN (Reason: pain) RF: 0 acetaminophen [Tylenol] 325 mg Tablet 325 - 650 mg PO Q6H PRN (Reason: Pain) RF: 0 albuterol sulfate 2.5 mg /3 mL (0.083 %) solution for nebulization 2.5 mg inhalation Q6H PRN (Reason: Shortness Of Breath) RF: 0 Discharge Orders: Discharge ED (Routine); Ordered 06/23/20 Ordered By: Jeremias Jennyfer Discharge Diet: Advance as tolerated and Clear Liquid Discharge Activity: Increase activity as tolerated Patient Instructions: Acute Nausea and Vomiting (ED) Activity Restrictions/Additional Instructions: Follow-up with medical provider as directed in 7 to 10 days for reevaluation. Continue taking all home medications as prescribed. Start with a clear liquid diet then advance as tolerated. Drink plenty of fluids and stay hydrated. Return to the ER or your medical provider if condition worsens. Please read and understand discharge instructions. If any questions, please ask. Coding Level of Care Code ED [employer] for [employer] 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
[2020-06-23 15:42] LABS: Basophils # 0.1 10^3/uL (0.0-0.1); Basophils % 0.3 %; Eosinophils % 0.1 %; Hematocrit 43.7 % (37.0-47.0); Hemoglobin 14.8 g/dL (11.5-15.3); Lymphocytes # 1.4 10^3/uL (0.8-4.8); Lymphocytes % 7.3 %; Mean Corpuscular HGB Conc 33.9 g/dL (30.0-36.0); Mean Corpuscular Hemoglobin 28.4 pg (28.0-34.0); Mean Corpuscular Volume 83.9 fL (81-99); Mean Platelet Volume 12.1 fL (7.4-10.4); Monocytes % 5.1 %; Neutrophils # 16.37 10^3/uL (1.8-7.7); Neutrophils % 86.5 %; Nucleated Red Blood Cells % 0 %; Platelet Count 316 10^3/cmm (130-400); Red Blood Count 5.21 10^6/uL (4.1-5.3); Red Cell Distribution Width 14.2 % (12.1-15.1); White Blood Count 18.9 10^3/uL (4.0-10.0)
--- NOTE | 2020-06-23 15:52 | CTR_ITS ---
PROCEDURE INFORMATION: Exam: CT Abdomen And Pelvis With Contrast Exam date and time: 06/23/2020 3:58 PM Age: 34 years old Clinical indication: Nausea and vomiting; Patient HX: C/O n/v and abd pain; Additional info: N/v and generalized abdominal pain TECHNIQUE: Imaging protocol: Computed tomography of the abdomen and pelvis with contrast. Radiation optimization: All CT scans at this facility use at least one of these dose optimization techniques: automated exposure control; mA and/or kV adjustment per patient size (includes targeted exams where dose is matched to clinical indication); or iterative reconstruction. Contrast material: OMNI 300; Contrast volume: 95 ml; Contrast route: INTRAVENOUS (IV); COMPARISON: CT abdomen pelvis w con* [id number] 02/28/2020 11:09 PM RADIATION DOSE METRICS: Total DLP (mGy-cm): 1720.62 FINDINGS: Lungs: The visualized lung bases are clear. Mediastinal space: Small hiatal hernia. Liver: 1 cm hypodensity in the posterior hepatic dome is most likely a benign cyst or hemangioma. Focal fatty infiltration along the falciform ligament. Liver is otherwise normal in appearance. Gallbladder and bile ducts: No intrahepatic or extrahepatic biliary dilitation. No calcified stones. Pancreas: No evidence of mass. No ductal dilation. Spleen: No splenomegaly or mass. Adrenal glands: Normal. Kidneys and ureters: No stones or hydronephrosis. No evidence of focal mass. Stomach and bowel: No evidence of obstruction. No focal bowel wall thickening or mass. No significant diverticula. Appendix: No evidence of appendicitis. Intraperitoneal space: No free air. No free fluid or evidence of abscess. Vasculature: No concerning abnormalities. Lymph nodes: No lymphadenopathy. Urinary bladder: Normal CT appearance. Reproductive: Normal CT appearance for age. Bones/joints: No acute abnormality. Soft tissues: Within normal limits. CT/CT abdomen pelvis w con* [id number] IMPRESSION: 1. Small hiatal hernia. 2. Otherwise no concerning findings. Radiation Dose CTDIVOL = (mGy): DLP = 1720.62 (mGy-cm)
[2020-06-23] MEDS: sodium chloride 0.9% 1,000 ML 999 ML IV (15:55)
[2020-06-23 16:03] VITALS: RESP 20; O2SAT 96
[2020-06-23] MEDS: metoclopramide 5 mg/mL SDV 2 mL 10 MG IVP (16:03)
[2020-06-23] MEDS: morphine 4 mg/mL SDV 1 mL IVP (16:03)
[2020-06-23 16:04] LABS: HCG, Serum Qual Negative (Negative)
[2020-06-23 16:09] LABS: Alanine Aminotransferase 17 U/L (0-33); Albumin Level 4.5 g/dL (3.5-5.2); Alkaline Phosphatase 99 IU/L (35-105); Blood Urea Nitrogen 13 mg/dL (6-20); Calcium 9.5 mg/dL (8.5-10.5); Carbon Dioxide 19 mmol/L (22-29); Chloride 102 mmol/L (98-107); Glomerular Filtration Rate 139.6 mL/min (90-130); Glucose 133 mg/dL (65-115); Lipase 36 U/L (13-60); Osmolality Calculated 286 mOsm/kg (285-295); Sodium 137 mmol/L (136-145); Total Bilirubin 0.5 mg/dL (0.15-1.2); Total Protein 7.5 g/dL (6.6-8.7)
[2020-06-23 16:13] LABS: Aspartate Amino Transferase 15 U/L (0-32)
[2020-06-23] MEDS: LORazepam 2 mg/mL INJ 1 mL IVP (17:03)
--- NOTE | 2020-06-23 17:16 | PC.NURSE ---
pt requests assistance to the restroom. pt assisted with standing up slowly. pt states that she feels off balance. pt assisted back to the bed to a seated position. pt verbalizes that she feels better after sitting down. pt provided with the call light and verbalizes understanding not to get up on her own. pt agrees that she will stay in bed and use the call light when she is ready to try to go to the bathroom again.
[2020-06-23] MEDS: iohexol 300 mg/mL 100 mL Btl IV (17:41)
--- NOTE | 2020-06-23 18:08 | PC.NURSE ---
Read and agree with assessment.
[2020-06-23 18:28] VITALS: BP 106/59; PULSE 76; RESP 16; O2SAT 94
[2020-06-23] MEDS: lidocaine 2% viscous 15 ML, aluminum-mag hydrox-simethicon 30 ML, sucralfate oral liq 1 GM PO (18:38)
[2020-06-23 19:04] LABS: Bilirubin Urine Neg (Negative); Blood Urine Neg (Negative); Glucose Urine UA Norm (Normal); Ketones Urine 3+ (Negative); Leukocyte Esterase Urine Negative (Negative); Nitrate Urine Negative (Negative); Protein Urine Neg (Negative); Sulfosalicylic Acid Urine Negative (Negative); Urine Appearance Clear (CLEAR); Urine Color Yellow (Yellow); Urobilinogen Urine 1 mg/dL (Negative); pH Urine 8 (5-7)
[2020-06-23 19:05] LABS: Add Urine Culture? No; Bacteria Urine TR /hpf; Mucus Urine 4+ /hpf; RBC Urine 0-4 /hpf (0-2); Squamous Epithelial Cell Urine 25-40 /hpf (0-5); WBC Urine 0-4 /hpf (0-5)
[2020-06-23] MEDS: ondansetron 2 mg/ML SDV 2 mL 4 MG IVP (19:06)
[2020-06-23 19:07] VITALS: RESP 14
[2020-06-23] MEDS: morphine 4 mg/mL SDV 1 mL 2 MG IVP (19:07)
== END 2020-06-23 19:24 | disposition home or self-care (01) ==
PROVIDERS: Emergency Provider Physician Assistant
DX: R11.15 Cyclical vomiting syndrome unrelated to migraine (principal); F17.210 Nicotine dependence, cigarettes, uncomplicated
CPT/HCPCS: 74177; 80053; 81001; 83690; 84703; 85025; 96361; 96374; 96375; 96376; 99284; J2060; J2270; J2405; J2765; J7030; Q9967

== ENCOUNTER → 2020-10-01 14:14 | Outpatient (BNVA) | payer MEDICAID, SELFPAY | PROVIDERS: Visit Provider Emergency Medicine | DX: Z20.822 Contact with and (suspected) exposure to COVID-19 (principal) | CPT/HCPCS: 87635 ==

== ENCOUNTER → 2020-10-09 11:26 | Outpatient (BNVA) | payer MEDICAID, SELFPAY | PROVIDERS: Referring Provider Family Medicine; Visit Provider Emergency Medicine | DX: Z20.822 Contact with and (suspected) exposure to COVID-19 (principal) | CPT/HCPCS: 87635 ==

== ENCOUNTER → 2021-03-03 11:00 | Outpatient (BNVA) | payer MEDICAID, SELFPAY | PROVIDERS: Visit Provider Emergency Medicine | DX: M25.532 Pain in left wrist (principal); W19.XXXA Unspecified fall, initial encounter | CPT/HCPCS: 73110 ==